=== PATIENT | female | born 1970 | race Caucasian/White ===

== ENCOUNTER 2017-09-03 11:10 | Emergency (ER) | payer OTHER ==
[~2017-09-03] VITALS: Ht 162.6 cm; Wt 90.7 kg
[~2017-09-03 11:10] MED LIST: ACEASPCAF; ACET325; ADAL40PEN; AEROECLIPSE II1 EACH PO; AMOX500 PO; ASPI81CH PO; ATOR80 PO; Amoxicillin500 MG PO; Ativan1 MG PO; BENADRYL25 MG PO; BENZ100A PO; CLOP75 PO; COLCHICINE0.6 MG PO; CRUTCH2 USE; CYCL10 PO; Cheratussin AC118 ML PO; Cipro500 MG PO; Crutch1 EACH MISC; DILT120 PO; Duoneb 2.5-0.5 M3 ML INH; ESOM20; ESTR2 PO; FERR325 PO; FLUO10 PO; FOLI1 PO; Flagyl500 MG PO; Flomax0.4 MG PO; GABA300 PO; HUMERA; HUMIRA10 MG/0.2; HYDACE10B PO; HYDACE25S PR; HYDACE5 PO; HYDCHLSU PO; HYDMOR4 PO; HYDR1TAB94 PO; IBUP600 PO; IBUP800; IBUP800 PO; IRON150C PO; ISOD40ER PO; ISOMON20; Isosorbide Mono30 MG PO; LEVSOD100 PO; LEVSOD50 PO; LORA2 PO; Lopressor 25 mg25 MG PO; MEPE50 PO; META400 PO; METCAR500 PO; METCAR750 PO; METF500 PO; METO10 PO; METO25ER PO; METRIBP PO; NAPR500 PO; NAPR550 PO; NITR.4SL; NITR.4SL SL; Nitrostat0.4 MG SL; Norco 10-325 T1 EACH PO; Norco 5-325 Ta1 EACH PO; OMEP20ER PO; ONDA4ODT; OXYACE5T PO; OXYACE7.5T PO; OXYC5 PO; PANT20 PO; PANT40 PO; PRED5 PO; PROACE100 PO; PROC10 PO; PROM25 PO; Pepcid20 MG PO; Percocet 5-3251 EACH PO; Percocet 7.5-31 EACH PO; Peridex480 ML SS; RANI150EL; RXPROACE PO; RXTRAM50 PO; Remicade100 MG IV; SUCR1 PO; SULF500A PO; TRAM50 PO; TREXALL PO; Zithromax250 MG PO
== END 2017-09-03 16:53 | disposition home or self-care (01) ==
LOC: ER 11:10
DX: G43.909 Migraine, unspecified, not intractable, without status migrainosus (principal); J06.9 Acute upper respiratory infection, unspecified; I10 Essential (primary) hypertension; F17.210 Nicotine dependence, cigarettes, uncomplicated; I25.2 Old myocardial infarction; E11.40 Type 2 diabetes mellitus with diabetic neuropathy, unspecified; Z88.5 Allergy status to narcotic agent; Z88.8 Allergy status to other drugs, medicaments and biological substances; Z79.899 Other long term (current) drug therapy; Z79.84 Long term (current) use of oral hypoglycemic drugs; Z79.82 Long term (current) use of aspirin
CPT/HCPCS: 36415; 71046; 96374; 96375; 99283; J0780; J1100; J1200; J1885; J2405; J7030

== ENCOUNTER 2017-10-24 12:35 | Emergency (ER) | payer OTHER ==
[~2017-10-24] VITALS: Ht 162.6 cm; Wt 90.7 kg
[~2017-10-24 12:35] MED LIST changes: +BUPR75 PO; +CODEINE-GUAIFE120 ML PO; +GUAI600T33 PO; +LEFL20 PO; -ONDA4ODT; +ONDA4ODT PO; +PRED20 PO; -RANI150EL; +RANI150EL PO; +Robaxin-750750 MG PO
[2017-10-24 13:02] LABS: BASOPHILS ABSOLUTE AUTO 0.03 K/mm3 (0.00-0.23); BASOPHILS PERCENT AUTO 0 % (0-2); EOSINOPHILS ABSOLUTE AUTO 0.15 K/mm3 (0.00-0.68); EOSINOPHILS PERCENT AUTO 2 % (0-6); Hematocrit 41.8 % (33.0-51.0); Hemoglobin 13.1 g/dL (11.5-16.0); IMMATURE GRAN ABSOLUTE AUTO 0.01 K/mm3 (0.00-0.10); IMMATURE GRAN PERCENT AUTO 0 % (0-1); LYMPHOCYTES ABSOLUTE AUTO 2.39 K/mm3 (0.84-5.20); LYMPHOCYTES PERCENT AUTO 36 % (21-46); MONOCYTES ABSOLUTE AUTO 0.71 K/mm3 (0.16-1.47); MONOCYTES PERCENT AUTO 11 % (4-13); Mean Corpuscular HGB 29.8 pg (26.0-34.0); Mean Corpuscular HGB Conc 31.3 g/dL (31.5-36.5); Mean Corpuscular Volume 95 fL (80-100); Mean Platelet Volume 12.3 fL (9.1-12.4); NEUTROPHILS ABSOLUTE AUTO 3.42 K/mm3 (1.96-9.15); NEUTROPHILS PERCENT AUTO 51 % (41-73); Platelet Count 129 K/mm3 (150-400); RDW Coefficient Variation 14.8 % (11.7-14.2); RDW Standard Deviation 51.7 fL (35.1-46.3); White Blood Cell Count 6.71 K/mm3 (4.00-11.30)
[2017-10-24 13:21] LABS: Alanine Aminotransfer (ALT/SGP 53 U/L (12-78); Albumin, Blood 3.6 g/dL (3.4-5.0); Albumin/Globulin Ratio 0.8 (0.8-1.8); Alk Phos 107 U/L (50-136); Anion Gap 6 mmol/L (6-16); Aspartate Aminotrans (AST/SGOT 46 U/L (12-37); Bilirubin, Total 0.5 mg/dL (0.1-1.0); Blood Urea Nitrogen 7 mg/dL (8-24); Bun/Creatinine Ratio 8.8 (12.0-20.0); CO2, Blood 26 mmol/L (21-32); Calcium, Blood 8.9 mg/dL (8.5-10.1); Chloride, Blood 108 mmol/L (98-108); Creatinine, Blood 0.79 mg/dL (0.40-1.00); Globulin, Blood 4.4 g/dL (2.2-4.0); Glomerular Filtration Rate >60 (60-); Glucose, Blood 162 mg/dL (70-99); Potassium, Blood 3.9 mmol/L (3.5-5.5); Sodium, Blood 140 mmol/L (136-145); Troponin I <0.015 ng/mL (0.000-0.040)
[2017-10-24] MEDS ORDERED: Norco 5-325 Ta1 EACH PO (14:19)
[2017-10-24] MEDS ORDERED: Cardizem Cd180 MG PO (14:19)
== END 2017-10-24 14:50 | disposition home or self-care (01) ==
LOC: ER 12:35
PROVIDERS: Emergency Medicine
DX: I20.9 Angina pectoris, unspecified (principal); I10 Essential (primary) hypertension; I25.2 Old myocardial infarction; F17.210 Nicotine dependence, cigarettes, uncomplicated; Z95.5 Presence of coronary angioplasty implant and graft; E11.40 Type 2 diabetes mellitus with diabetic neuropathy, unspecified; Z79.84 Long term (current) use of oral hypoglycemic drugs; Z79.82 Long term (current) use of aspirin; Z79.899 Other long term (current) drug therapy; Z88.8 Allergy status to other drugs, medicaments and biological substances; Z88.5 Allergy status to narcotic agent; Z88.7 Allergy status to serum and vaccine
CPT/HCPCS: 36415; 80053; 82272; 83690; 84484; 85025; 93005; 93010; 96374; 99284; J3010

== ENCOUNTER 2020-06-28 20:15 | Emergency (ER) | payer OTHER ==
[~2020-06-28] VITALS: Ht 160 cm; Wt 85.7 kg
[~2020-06-28 20:15] MED LIST changes: +Cardizem Cd180 MG PO
[2020-06-28 20:41] LABS: BASOPHILS ABSOLUTE AUTO 0.03 K/mm3 (0.00-0.23); BASOPHILS PERCENT AUTO 0 % (0-2); EOSINOPHILS PERCENT AUTO 2 % (0-6); Hematocrit 41.6 % (33.0-51.0); Hemoglobin 13.6 g/dL (11.5-16.0); IMMATURE GRAN ABSOLUTE AUTO 0.03 K/mm3 (0.00-0.10); IMMATURE GRAN PERCENT AUTO 0 % (0-1); LYMPHOCYTES ABSOLUTE AUTO 4.01 K/mm3 (0.84-5.20); LYMPHOCYTES PERCENT AUTO 43 % (21-46); MONOCYTES ABSOLUTE AUTO 0.65 K/mm3 (0.16-1.47); MONOCYTES PERCENT AUTO 7 % (4-13); Mean Corpuscular HGB 31.1 pg (26.0-34.0); Mean Corpuscular HGB Conc 32.7 g/dL (31.5-36.5); Mean Corpuscular Volume 95 fL (80-100); Mean Platelet Volume 11.1 fL (9.1-12.4); NEUTROPHILS ABSOLUTE AUTO 4.34 K/mm3 (1.96-9.15); NEUTROPHILS PERCENT AUTO 47 % (41-73); Platelet Count 173 K/mm3 (150-400); RDW Coefficient Variation 15.7 % (11.7-14.2); RDW Standard Deviation 55.2 fL (35.1-46.3); Red Blood Cell Count 4.37 M/mm3 (3.80-5.20); White Blood Cell Count 9.26 K/mm3 (4.00-11.30)
[2020-06-28 20:59] LABS: Alanine Aminotransfer (ALT/SGP 38 U/L (12-78); Albumin, Blood 4.1 g/dL (3.4-5.0); Alk Phos 128 U/L (50-136); Anion Gap 4 mmol/L (6-16); Aspartate Aminotrans (AST/SGOT 22 U/L (12-37); Bilirubin, Total 0.3 mg/dL (0.1-1.0); Blood Urea Nitrogen 12 mg/dL (8-24); Bun/Creatinine Ratio 16.4 (12.0-20.0); CO2, Blood 30 mmol/L (21-32); Calcium, Blood 9.7 mg/dL (8.5-10.1); Chloride, Blood 107 mmol/L (98-108); Creatinine, Blood 0.73 mg/dL (0.40-1.00); Globulin, Blood 4.1 g/dL (2.2-4.0); Glomerular Filtration Rate >60 (60-); Glucose, Blood 101 mg/dL (70-99); Potassium, Blood 4.1 mmol/L (3.5-5.5); Sodium, Blood 141 mmol/L (136-145); Total Protein, Blood 8.2 g/dL (6.4-8.2)
[2020-06-28 21:34] LABS: Source, Urine Clean Catch
[2020-06-28 21:37] LABS: Blood, Urine 1+ (Neg); Glucose Qualitative, Urine Neg (Neg); Ketones, Urine 1+ (Neg); Leukocyte Esterase, Urine 1+ (Neg); Nitrite, Urine Neg (Neg); Protein, Urine 2+ (Neg); Specific Gravity, Urine 1.015 (1.003-1.022); Urobilinogen, Urine NORM (Normal); pH, Urine 6.5 (5.0-8.0)
[2020-06-28 21:40] LABS: Appearance, Urine Clear (Clear); Color, Urine Yellow (P-Yellow)
[2020-06-28 21:46] LABS: Bilirubin, Urine 1+ (Neg)
[2020-06-28 21:47] LABS: Bacteria Few /hpf; Calcium Oxalate Crystals Many /hpf; Red Blood Cells, Urine 0-2 /hpf (0-2); Squamous Epithelial Cells Few /hpf (Few); White Blood Cells, Urine 0-2 /hpf (0-5)
[2020-06-28] MEDS ORDERED: Flomax0.4 MG PO (23:59)
[2020-06-29] MEDS ORDERED: Percocet 10-321 EACH PO (23:46)
[2020-06-30] MEDS ORDERED: ONDA4ODT MM (10:39)
== END 2020-06-29 00:11 | disposition home or self-care (01) ==
LOC: ER 20:15
PROVIDERS: Physician Assistant
DX: N20.0 Calculus of kidney (principal); I10 Essential (primary) hypertension; E11.40 Type 2 diabetes mellitus with diabetic neuropathy, unspecified; I25.2 Old myocardial infarction; Z79.82 Long term (current) use of aspirin; Z79.899 Other long term (current) drug therapy; Z79.02 Long term (current) use of antithrombotics/antiplatelets; Z88.5 Allergy status to narcotic agent; Z88.8 Allergy status to other drugs, medicaments and biological substances; Z88.7 Allergy status to serum and vaccine; Z95.5 Presence of coronary angioplasty implant and graft
CPT/HCPCS: 36415; 74176; 80053; 81001; 85025; 87086; 96374; 96375; 99284-25; A9270; J1170; J1885; J2405

== ENCOUNTER 2020-06-29 18:57 | Emergency (ER) | payer OTHER ==
[~2020-06-29] VITALS: Ht 160 cm; Wt 85.7 kg
[2020-06-29 19:35] LABS: Source, Urine Clean Catch
[2020-06-29 19:36] LABS: BASOPHILS ABSOLUTE AUTO 0.03 K/mm3 (0.00-0.23); BASOPHILS PERCENT AUTO 0 % (0-2); EOSINOPHILS ABSOLUTE AUTO 0.19 K/mm3 (0.00-0.68); EOSINOPHILS PERCENT AUTO 2 % (0-6); Hematocrit 38.7 % (33.0-51.0); Hemoglobin 12.6 g/dL (11.5-16.0); IMMATURE GRAN ABSOLUTE AUTO 0.04 K/mm3 (0.00-0.10); IMMATURE GRAN PERCENT AUTO 1 % (0-1); LYMPHOCYTES PERCENT AUTO 44 % (21-46); MONOCYTES ABSOLUTE AUTO 0.47 K/mm3 (0.16-1.47); MONOCYTES PERCENT AUTO 5 % (4-13); Mean Corpuscular HGB 31.3 pg (26.0-34.0); Mean Corpuscular HGB Conc 32.6 g/dL (31.5-36.5); Mean Corpuscular Volume 96 fL (80-100); Mean Platelet Volume 11.3 fL (9.1-12.4); NEUTROPHILS PERCENT AUTO 48 % (41-73); Platelet Count 158 K/mm3 (150-400); RDW Coefficient Variation 15.7 % (11.7-14.2); RDW Standard Deviation 55.5 fL (35.1-46.3); Red Blood Cell Count 4.02 M/mm3 (3.80-5.20); White Blood Cell Count 8.83 K/mm3 (4.00-11.30)
[2020-06-29 19:43] LABS: Appearance, Urine Clear (Clear); Bilirubin, Urine Neg (Neg); Blood, Urine 1+ (Neg); Color, Urine Amber (P-Yellow); Glucose Qualitative, Urine Neg (Neg); Ketones, Urine Neg (Neg); Leukocyte Esterase, Urine 1+ (Neg); Nitrite, Urine Neg (Neg); Protein, Urine Neg (Neg); Urobilinogen, Urine NORM (Normal); pH, Urine 6.5 (5.0-8.0)
[2020-06-29 19:58] LABS: Bacteria Few /hpf; Calcium Oxalate Crystals Few /hpf; Squamous Epithelial Cells Rare /hpf (Few)
[2020-06-29 19:59] LABS: Alanine Aminotransfer (ALT/SGP 36 U/L (12-78); Albumin, Blood 3.7 g/dL (3.4-5.0); Alk Phos 117 U/L (50-136); Anion Gap 5 mmol/L (6-16); Aspartate Aminotrans (AST/SGOT 23 U/L (12-37); Bilirubin, Total 0.3 mg/dL (0.1-1.0); Blood Urea Nitrogen 13 mg/dL (8-24); Bun/Creatinine Ratio 17.4 (12.0-20.0); CO2, Blood 25 mmol/L (21-32); Calcium, Blood 9.2 mg/dL (8.5-10.1); Chloride, Blood 109 mmol/L (98-108); Creatinine, Blood 0.75 mg/dL (0.40-1.00); Globulin, Blood 3.8 g/dL (2.2-4.0); Glomerular Filtration Rate >60 (60-); Glucose, Blood 121 mg/dL (70-99); Potassium, Blood 3.6 mmol/L (3.5-5.5); Sodium, Blood 139 mmol/L (136-145); Total Protein, Blood 7.5 g/dL (6.4-8.2)
[2020-06-29] MEDS ORDERED: Percocet 10-321 EACH PO (23:46)
[2020-06-30] MEDS ORDERED: ONDA4ODT MM (10:39)
== END 2020-06-30 00:07 | disposition home or self-care (01) ==
LOC: ER 18:57
PROVIDERS: Physician Assistant
DX: N20.0 Calculus of kidney (principal); I10 Essential (primary) hypertension; E11.40 Type 2 diabetes mellitus with diabetic neuropathy, unspecified; F17.210 Nicotine dependence, cigarettes, uncomplicated; I25.2 Old myocardial infarction; Z79.82 Long term (current) use of aspirin; Z79.899 Other long term (current) drug therapy; Z79.84 Long term (current) use of oral hypoglycemic drugs; Z88.5 Allergy status to narcotic agent; Z88.8 Allergy status to other drugs, medicaments and biological substances; Z88.7 Allergy status to serum and vaccine; Z79.02 Long term (current) use of antithrombotics/antiplatelets
CPT/HCPCS: 36415; 76770; 80053; 81001; 85025; 87086; 96374; 96375; 96376; 99284-25; J1170; J1885; J2405

== ENCOUNTER 2020-09-02 18:58 | Emergency (ER) | payer OTHER ==
[~2020-09-02] VITALS: Ht 160 cm; Wt 86.2 kg
[~2020-09-02 18:58] MED LIST changes: +ONDA4ODT MM; +Percocet 10-321 EACH PO
== END 2020-09-02 23:03 | disposition home or self-care (01) ==
LOC: ER 18:58
DX: M79.89 Other specified soft tissue disorders (principal); M79.604 Pain in right leg; Z88.8 Allergy status to other drugs, medicaments and biological substances; Z88.5 Allergy status to narcotic agent; Z79.02 Long term (current) use of antithrombotics/antiplatelets; Z79.899 Other long term (current) drug therapy
CPT/HCPCS: 93971; 99283-25

== ENCOUNTER 2021-07-10 14:29 | Emergency (ER) | payer MEDICARE, OTHER ==
[~2021-07-10] VITALS: Ht 160 cm; Wt 86.2 kg
[2021-07-10 15:06] LABS: Hematocrit 40.7 % (33.0-51.0); Hemoglobin 13.2 g/dL (11.5-16.0); Mean Corpuscular HGB 32.2 pg (26.0-34.0); Mean Corpuscular HGB Conc 32.4 g/dL (31.5-36.5); Mean Corpuscular Volume 99 fL (80-100); Mean Platelet Volume 10.5 fL (9.1-12.4); Platelet Count 214 K/mm3 (150-400); RDW Coefficient Variation 13.9 % (11.7-14.2); RDW Standard Deviation 50.9 fL (35.1-46.3); White Blood Cell Count 17.02 K/mm3 (4.00-11.30)
[2021-07-10 15:26] LABS: Alanine Aminotransfer (ALT/SGP 55 U/L (12-78); Albumin, Blood 3.3 g/dL (3.4-5.0); Albumin/Globulin Ratio 0.8 (0.8-1.8); Alk Phos 122 U/L (50-136); Anion Gap 5 mmol/L (6-16); Aspartate Aminotrans (AST/SGOT 41 U/L (12-37); Bilirubin, Total 0.3 mg/dL (0.1-1.0); Blood Urea Nitrogen 10 mg/dL (8-24); Bun/Creatinine Ratio 14.6 (12.0-20.0); CO2, Blood 25 mmol/L (21-32); Calcium, Blood 9.3 mg/dL (8.5-10.1); Chloride, Blood 109 mmol/L (98-108); Creatinine, Blood 0.68 mg/dL (0.40-1.00); Globulin, Blood 4.1 g/dL (2.2-4.0); Glomerular Filtration Rate >60 (60-); Glucose, Blood 146 mg/dL (70-99); Potassium, Blood 3.5 mmol/L (3.5-5.5); Sodium, Blood 139 mmol/L (136-145); Total Protein, Blood 7.4 g/dL (6.4-8.2)
[2021-07-10 15:36] LABS: BAND PERCENT MAN 2 % (0-8); BASOPHILS PERCENT MAN 0 % (0-2); EOSINOPHILS PERCENT MAN 0 % (0-6); LYMPHOCYTES % ATYPICAL MANUAL 3 % (0-0); LYMPHOCYTES ABSOLUTE MAN 4.59 K/mm3 (0.84-5.20); LYMPHOCYTES PERCENT MAN 24 % (21-46); MONOCYTES ABSOLUTE MAN 0.68 K/mm3 (0.16-1.47); MONOCYTES PERCENT MAN 4 % (4-13); NEUTROPHILS ABSOLUTE MAN 11.74 K/mm3 (1.96-9.15); SEG NEUTROPHILS PERCENT MAN 67 % (41-73); TOTAL CELLS COUNTED 100
[2021-07-10] MEDS ORDERED: Prednisone20 MG PO (17:40)
[2021-07-10] MEDS ORDERED: ALLO100 PO (17:40)
== END 2021-07-10 18:05 | disposition home or self-care (01) ==
LOC: ER 14:29
PROVIDERS: Physician Assistant
DX: M25.572 Pain in left ankle and joints of left foot (principal); I10 Essential (primary) hypertension; I25.2 Old myocardial infarction; E11.40 Type 2 diabetes mellitus with diabetic neuropathy, unspecified; F17.210 Nicotine dependence, cigarettes, uncomplicated; Z79.899 Other long term (current) drug therapy; Z79.82 Long term (current) use of aspirin; Z79.84 Long term (current) use of oral hypoglycemic drugs; Z88.5 Allergy status to narcotic agent; Z88.8 Allergy status to other drugs, medicaments and biological substances
CPT/HCPCS: 36415; 80053; 83880; 85025; 93971; 96372; 99284-25; J1170

== ENCOUNTER 2021-08-22 19:07 | Emergency (ER) | payer MEDICARE, OTHER ==
[~2021-08-22] VITALS: Ht 160 cm; Wt 86.2 kg
[~2021-08-22 19:07] MED LIST changes: +ALLO100 PO; +Prednisone20 MG PO
[2021-08-22 20:20] LABS: BASOPHILS ABSOLUTE AUTO 0.02 K/mm3 (0.00-0.23); BASOPHILS PERCENT AUTO 0 % (0-2); EOSINOPHILS ABSOLUTE AUTO 0.04 K/mm3 (0.00-0.68); EOSINOPHILS PERCENT AUTO 1 % (0-6); Hematocrit 41.6 % (33.0-51.0); Hemoglobin 13.6 g/dL (11.5-16.0); IMMATURE GRAN ABSOLUTE AUTO 0.08 K/mm3 (0.00-0.10); IMMATURE GRAN PERCENT AUTO 1 % (0-1); LYMPHOCYTES ABSOLUTE AUTO 2.13 K/mm3 (0.84-5.20); LYMPHOCYTES PERCENT AUTO 36 % (21-46); MONOCYTES ABSOLUTE AUTO 0.68 K/mm3 (0.16-1.47); MONOCYTES PERCENT AUTO 12 % (4-13); Mean Corpuscular HGB 32.2 pg (26.0-34.0); Mean Corpuscular HGB Conc 32.7 g/dL (31.5-36.5); Mean Corpuscular Volume 99 fL (80-100); Mean Platelet Volume 10.6 fL (9.1-12.4); NEUTROPHILS ABSOLUTE AUTO 2.95 K/mm3 (1.96-9.15); NEUTROPHILS PERCENT AUTO 50 % (41-73); Platelet Count 146 K/mm3 (150-400); RDW Coefficient Variation 14.9 % (11.7-14.2); RDW Standard Deviation 54.3 fL (35.1-46.3); Red Blood Cell Count 4.22 M/mm3 (3.80-5.20)
[2021-08-22 20:41] LABS: Alanine Aminotransfer (ALT/SGP 120 U/L (12-78); Albumin, Blood 3.5 g/dL (3.4-5.0); Albumin/Globulin Ratio 0.9 (0.8-1.8); Alk Phos 121 U/L (50-136); Anion Gap 4 mmol/L (6-16); Aspartate Aminotrans (AST/SGOT 90 U/L (12-37); Bilirubin, Total 0.3 mg/dL (0.1-1.0); Blood Urea Nitrogen 10 mg/dL (8-24); Bun/Creatinine Ratio 13.8 (12.0-20.0); CO2, Blood 28 mmol/L (21-32); Calcium, Blood 9.4 mg/dL (8.5-10.1); Chloride, Blood 106 mmol/L (98-108); Creatinine, Blood 0.73 mg/dL (0.40-1.00); Globulin, Blood 3.9 g/dL (2.2-4.0); Glomerular Filtration Rate >60 (60-); Glucose, Blood 153 mg/dL (70-99); Sodium, Blood 138 mmol/L (136-145); Total Protein, Blood 7.4 g/dL (6.4-8.2)
== END 2021-08-22 21:11 | disposition home or self-care (01) ==
LOC: ER 19:07
PROVIDERS: Physician Assistant
DX: Z53.21 Procedure and treatment not carried out due to patient leaving prior to being seen by health care provider (principal)
CPT/HCPCS: 36415; 71045; 80053; 84484; 85025; 93005; 93010; 99283-25

== ENCOUNTER 2021-09-29 14:30 | Emergency (ER) | payer MEDICARE, OTHER ==
[~2021-09-29] VITALS: Ht 160 cm; Wt 86.2 kg
[2021-09-29 16:05] LABS: BASOPHILS ABSOLUTE AUTO 0.03 K/mm3 (0.00-0.23); BASOPHILS PERCENT AUTO 0 % (0-2); EOSINOPHILS ABSOLUTE AUTO 0.21 K/mm3 (0.00-0.68); EOSINOPHILS PERCENT AUTO 2 % (0-6); Hematocrit 38.1 % (33.0-51.0); Hemoglobin 12.8 g/dL (11.5-16.0); IMMATURE GRAN ABSOLUTE AUTO 0.03 K/mm3 (0.00-0.10); IMMATURE GRAN PERCENT AUTO 0 % (0-1); LYMPHOCYTES PERCENT AUTO 27 % (21-46); MONOCYTES ABSOLUTE AUTO 0.82 K/mm3 (0.16-1.47); MONOCYTES PERCENT AUTO 8 % (4-13); Mean Corpuscular HGB 32.2 pg (26.0-34.0); Mean Corpuscular HGB Conc 33.6 g/dL (31.5-36.5); Mean Corpuscular Volume 96 fL (80-100); Mean Platelet Volume 10.7 fL (9.1-12.4); NEUTROPHILS ABSOLUTE AUTO 6.12 K/mm3 (1.96-9.15); NEUTROPHILS PERCENT AUTO 62 % (41-73); Platelet Count 161 K/mm3 (150-400); RDW Coefficient Variation 13.6 % (11.7-14.2); RDW Standard Deviation 48.4 fL (35.1-46.3); Red Blood Cell Count 3.98 M/mm3 (3.80-5.20); White Blood Cell Count 9.81 K/mm3 (4.00-11.30)
[2021-09-29 16:19] LABS: C-REACTIVE PROTEIN, EXT RANGE 7.27 mg/dL (0.000-0.300)
[2021-09-29 16:22] LABS: Albumin, Blood 2.9 g/dL (3.4-5.0); Albumin/Globulin Ratio 0.6 (0.8-1.8); Bilirubin, Total 0.5 mg/dL (0.1-1.0); Bun/Creatinine Ratio 12.6 (12.0-20.0); Calcium, Blood 8.8 mg/dL (8.5-10.1); Creatinine, Blood 0.64 mg/dL (0.40-1.00); Globulin, Blood 4.5 g/dL (2.2-4.0); Potassium, Blood 3.5 mmol/L (3.5-5.5); Total Protein, Blood 7.4 g/dL (6.4-8.2)
[2021-09-29] MEDS ORDERED: LEVO750 PO (21:27)
== END 2021-09-29 21:49 | disposition home or self-care (01) ==
LOC: ER 14:30
PROVIDERS: Physician Assistant
DX: J18.9 Pneumonia, unspecified organism (principal); I10 Essential (primary) hypertension; R21 Rash and other nonspecific skin eruption; I25.2 Old myocardial infarction; E11.40 Type 2 diabetes mellitus with diabetic neuropathy, unspecified; F17.210 Nicotine dependence, cigarettes, uncomplicated; Z79.02 Long term (current) use of antithrombotics/antiplatelets; Z79.899 Other long term (current) drug therapy; Z79.82 Long term (current) use of aspirin; Z79.84 Long term (current) use of oral hypoglycemic drugs; Z88.4 Allergy status to anesthetic agent; Z88.5 Allergy status to narcotic agent; Z88.7 Allergy status to serum and vaccine; Z88.8 Allergy status to other drugs, medicaments and biological substances; Z95.818 Presence of other cardiac implants and grafts
CPT/HCPCS: 71046; 80053; 84484; 85025; 86140; 93005; 93010; A9270

== ENCOUNTER 2021-10-27 09:15 | Emergency (ER) | payer OTHER ==
[~2021-10-27] VITALS: Ht 160 cm; Wt 84.4 kg
[~2021-10-27 09:15] MED LIST changes: +LEVO750 PO
[2021-10-27 10:53] LABS: Albumin/Globulin Ratio 0.8 (0.8-1.8); Bilirubin, Total 0.5 mg/dL (0.1-1.0); Bun/Creatinine Ratio 17.8 (12.0-20.0); Calcium, Blood 8.7 mg/dL (8.5-10.1); Creatinine, Blood 0.62 mg/dL (0.40-1.00); Potassium, Blood 3.6 mmol/L (3.5-5.5)
[2021-10-27 11:15] LABS: BASOPHILS ABSOLUTE AUTO 0.04 K/mm3 (0.00-0.23); BASOPHILS PERCENT AUTO 0 % (0-2); EOSINOPHILS ABSOLUTE AUTO 0.05 K/mm3 (0.00-0.68); EOSINOPHILS PERCENT AUTO 0 % (0-6); Hematocrit 37.7 % (33.0-51.0); Hemoglobin 12.3 g/dL (11.5-16.0); IMMATURE GRAN ABSOLUTE AUTO 0.08 K/mm3 (0.00-0.10); IMMATURE GRAN PERCENT AUTO 1 % (0-1); LYMPHOCYTES ABSOLUTE AUTO 1.88 K/mm3 (0.84-5.20); LYMPHOCYTES PERCENT AUTO 11 % (21-46); MONOCYTES ABSOLUTE AUTO 0.97 K/mm3 (0.16-1.47); MONOCYTES PERCENT AUTO 6 % (4-13); Mean Corpuscular HGB 31.9 pg (26.0-34.0); Mean Corpuscular HGB Conc 32.6 g/dL (31.5-36.5); Mean Corpuscular Volume 98 fL (80-100); Mean Platelet Volume 11.2 fL (9.1-12.4); NEUTROPHILS ABSOLUTE AUTO 13.72 K/mm3 (1.96-9.15); NEUTROPHILS PERCENT AUTO 82 % (41-73); Platelet Count 147 K/mm3 (150-400); RDW Coefficient Variation 13.6 % (11.7-14.2); RDW Standard Deviation 48.6 fL (35.1-46.3); Red Blood Cell Count 3.86 M/mm3 (3.80-5.20); White Blood Cell Count 16.74 K/mm3 (4.00-11.30)
[2021-10-27 13:27] LABS: Influenza A, PCR NEGATIVE (NEGATIVE); Influenza B, PCR NEGATIVE (NEGATIVE); Resp Syncytial Virus, PCR NEGATIVE (NEGATIVE); SARS-Cov-2 (COVID-19) PCR, MMC NEGATIVE (NEGATIVE)
[2021-10-27] MEDS ORDERED: ALBU2.5V5 NEB (14:35)
[2021-10-27] MEDS ORDERED: ALBU90OI INH (14:35)
== END 2021-10-27 14:52 | disposition home or self-care (01) ==
LOC: ER 09:15
PROVIDERS: Emergency Medicine
DX: J20.9 Acute bronchitis, unspecified (principal); I10 Essential (primary) hypertension; I25.2 Old myocardial infarction; E11.42 Type 2 diabetes mellitus with diabetic polyneuropathy; M06.9 Rheumatoid arthritis, unspecified; Z95.5 Presence of coronary angioplasty implant and graft; Z20.822 Contact with and (suspected) exposure to COVID-19; Z79.899 Other long term (current) drug therapy; Z79.52 Long term (current) use of systemic steroids; Z79.84 Long term (current) use of oral hypoglycemic drugs; Z79.02 Long term (current) use of antithrombotics/antiplatelets
CPT/HCPCS: 0241U; 36415; 71046; 80053; 84484; 85025; 93005; 93010; 94640; 94664; 99284-25; A9270; J1170; J2405

== ENCOUNTER 2024-04-11 14:17 | Emergency (ER) | payer OTHER ==
[~2024-04-11] VITALS: Ht 165.1 cm; Wt 79.4 kg
[~2024-04-11 14:17] MED LIST changes: +ALBU2.5V5 NEB; +ALBU90OI INH
[2024-04-11 15:08] LABS: BASOPHILS ABSOLUTE AUTO 0.02 K/mm3 (0.00-0.23); BASOPHILS PERCENT AUTO 0 % (0-2); EOSINOPHILS ABSOLUTE AUTO 0.24 K/mm3 (0.00-0.68); EOSINOPHILS PERCENT AUTO 3 % (0-6); Hematocrit 38.2 % (33.0-51.0); Hemoglobin 12.8 g/dL (11.5-16.0); IMMATURE GRAN ABSOLUTE AUTO 0.03 K/mm3 (0.00-0.10); IMMATURE GRAN PERCENT AUTO 0 % (0-1); LYMPHOCYTES ABSOLUTE AUTO 2.81 K/mm3 (0.84-5.20); LYMPHOCYTES PERCENT AUTO 36 % (21-46); MONOCYTES ABSOLUTE AUTO 0.39 K/mm3 (0.16-1.47); MONOCYTES PERCENT AUTO 5 % (4-13); Mean Corpuscular HGB 33.9 pg (26.0-34.0); Mean Corpuscular HGB Conc 33.5 g/dL (31.5-36.5); Mean Corpuscular Volume 101 fL (80-100); Mean Platelet Volume 11.2 fL (9.1-12.4); NEUTROPHILS ABSOLUTE AUTO 4.26 K/mm3 (1.96-9.15); NEUTROPHILS PERCENT AUTO 55 % (41-73); Platelet Count 138 K/mm3 (150-400); RDW Coefficient Variation 12.7 % (11.7-14.2); Red Blood Cell Count 3.78 M/mm3 (3.80-5.20); White Blood Cell Count 7.75 K/mm3 (4.00-11.30)
[2024-04-11 15:28] LABS: Albumin, Blood 3.3 g/dL (3.4-5.0); Albumin/Globulin Ratio 0.9 (0.8-1.8); Bilirubin, Total 0.4 mg/dL (0.1-1.0); Bun/Creatinine Ratio 14.1 (12.0-20.0); Calcium, Blood 8.6 mg/dL (8.5-10.1); Creatinine, Blood 0.78 mg/dL (0.40-1.00); Globulin, Blood 3.6 g/dL (2.2-4.0); Total Protein, Blood 6.9 g/dL (6.4-8.2)
[2024-04-11] MEDS ORDERED: Ketorolac Tromethamine 15mg Vial IV ONE (16:30)
[2024-04-11] MEDS ORDERED: Nitroglycerin 0.4 MG SUBL SL ONE ×2 (16:30→17:30)
[2024-04-11 17:40] LABS: Influenza A, PCR NEGATIVE (NEGATIVE); Influenza B, PCR NEGATIVE (NEGATIVE); Resp Syncytial Virus, PCR NEGATIVE (NEGATIVE); SARS-Cov-2 (COVID-19) PCR, MMC NEGATIVE (NEGATIVE)
[2024-04-11 18:29] VITALS: BP 165/99
[2024-04-11] MEDS ORDERED: OxyCODONE 10/Acetamin 325 TABLET PO ONE (18:40)
[2024-04-11] MEDS ORDERED: Azithromycin 250 MG Tab PO ONE (18:40)
[2024-04-11] MEDS ORDERED: Benzonatate 100 MG Cap PO ONE (18:45)
[2024-04-11] MEDS ORDERED: AZIT250 PO (19:20)
[2024-04-11] MEDS ORDERED: BENZ100A PO (19:21)
[2024-04-11] MEDS ORDERED: ACET500 PO (19:21)
== END 2024-04-11 19:30 | disposition home or self-care (01) ==
LOC: ER 14:17
PROVIDERS: Emergency Medicine; Student in an Organized Health Care Education/Training Program
DX: R07.89 Other chest pain (principal); R05.9 Cough, unspecified; R91.1 Solitary pulmonary nodule; I25.2 Old myocardial infarction; I10 Essential (primary) hypertension; E11.42 Type 2 diabetes mellitus with diabetic polyneuropathy; M06.9 Rheumatoid arthritis, unspecified; M32.9 Systemic lupus erythematosus, unspecified; L40.50 Arthropathic psoriasis, unspecified; K50.90 Crohn's disease, unspecified, without complications; F17.210 Nicotine dependence, cigarettes, uncomplicated; Z95.5 Presence of coronary angioplasty implant and graft; Z88.5 Allergy status to narcotic agent; Z88.8 Allergy status to other drugs, medicaments and biological substances; Z88.7 Allergy status to serum and vaccine; Z79.84 Long term (current) use of oral hypoglycemic drugs; Z79.02 Long term (current) use of antithrombotics/antiplatelets; Z79.82 Long term (current) use of aspirin; Z79.52 Long term (current) use of systemic steroids; Z79.899 Other long term (current) drug therapy
CPT/HCPCS: 0241U; 71046; 71260; 80053; 83690; 83880; 84484; 85025; 85379; 93005; 93010; 96374-59; 99285-25; A9270; J1885; Q9967

== ENCOUNTER 2024-09-04 22:50 | Emergency (ER) | payer MEDICARE ==
[~2024-09-04] VITALS: Ht 170.2 cm; Wt 79.4 kg
[~2024-09-04 22:50] MED LIST changes: +ACET500 PO; +AZIT250 PO
[2024-09-04 23:04] VITALS: BP 120/92
== END 2024-09-05 00:20 | disposition home or self-care (01) ==
LOC: ER 22:50
DX: S70.11XA Contusion of right thigh, initial encounter (principal); M25.572 Pain in left ankle and joints of left foot; X50.0XXA Overexertion from strenuous movement or load, initial encounter; F17.210 Nicotine dependence, cigarettes, uncomplicated; I10 Essential (primary) hypertension; E11.40 Type 2 diabetes mellitus with diabetic neuropathy, unspecified; Z87.442 Personal history of urinary calculi; Z88.1 Allergy status to other antibiotic agents; Z88.2 Allergy status to sulfonamides; Z88.9 Allergy status to unspecified drugs, medicaments and biological substances; Z88.0 Allergy status to penicillin; Z91.09 Other allergy status, other than to drugs and biological substances; Z79.899 Other long term (current) drug therapy; Z79.891 Long term (current) use of opiate analgesic; Z79.890 Hormone replacement therapy; Z79.51 Long term (current) use of inhaled steroids; Z79.52 Long term (current) use of systemic steroids; Z79.83 Long term (current) use of bisphosphonates; Z79.82 Long term (current) use of aspirin; Z79.2 Long term (current) use of antibiotics
CPT/HCPCS: 73610; 73630; 99283-25

== ENCOUNTER 2024-11-12 10:04 | Emergency (ER) | payer OTHER ==
[~2024-11-12] VITALS: Ht 157.5 cm; Wt 79.4 kg
[~2024-11-12 10:04] MED LIST changes: +CEPH500 PO; +DOCU100 PO; +DOCUZEN 8.6-501 EACH PO; +MELO7.5 PO; +METO50ER PO; +MIRALAX17 GM PO; +Pantoprazole So40 MG PO; +SENN187 PO; +SULF500 PO; +TAMS.4ER PO
[2024-11-12] MEDS ORDERED: Ketorolac Tromethamine 15mg Vial IV ONE (10:15)
[2024-11-12] MEDS ORDERED: NS 1,000 ML IV SCH (10:15)
[2024-11-12] MEDS ORDERED: Ondansetron HCl 2 MG / ML 2ML Vial IV ONE (10:15)
[2024-11-12 10:52] LABS: BASOPHILS ABSOLUTE AUTO 0.04 K/mm3 (0.00-0.23); BASOPHILS PERCENT AUTO 1 % (0-2); EOSINOPHILS ABSOLUTE AUTO 0.12 K/mm3 (0.00-0.68); EOSINOPHILS PERCENT AUTO 1 % (0-6); Hematocrit 41.8 % (33.0-51.0); Hemoglobin 13.7 g/dL (11.5-16.0); IMMATURE GRAN ABSOLUTE AUTO 0.03 K/mm3 (0.00-0.10); IMMATURE GRAN PERCENT AUTO 0 % (0-1); LYMPHOCYTES PERCENT AUTO 32 % (21-46); MONOCYTES ABSOLUTE AUTO 0.67 K/mm3 (0.16-1.47); MONOCYTES PERCENT AUTO 8 % (4-13); Mean Corpuscular HGB 32.9 pg (26.0-34.0); Mean Corpuscular HGB Conc 32.8 g/dL (31.5-36.5); Mean Corpuscular Volume 101 fL (80-100); Mean Platelet Volume 11.3 fL (9.1-12.4); NEUTROPHILS ABSOLUTE AUTO 5.09 K/mm3 (1.96-9.15); NEUTROPHILS PERCENT AUTO 58 % (41-73); Platelet Count 176 K/mm3 (150-400); RDW Coefficient Variation 12.9 % (11.7-14.2); RDW Standard Deviation 47.8 fL (35.1-46.3); Red Blood Cell Count 4.16 M/mm3 (3.80-5.20); White Blood Cell Count 8.75 K/mm3 (4.00-11.30)
[2024-11-12 11:04] LABS: Bilirubin, Total 0.5 mg/dL (0.1-1.0); Bun/Creatinine Ratio 13.7 (12.0-20.0); Calcium, Blood 9.1 mg/dL (8.5-10.1); Creatinine, Blood 0.88 mg/dL (0.40-1.00); Globulin, Blood 4.1 g/dL (2.2-4.0); Potassium, Blood 3.9 mmol/L (3.5-5.5); Total Protein, Blood 8.1 g/dL (6.4-8.2)
[2024-11-12] MEDS ORDERED: HYDROmorphone HCl/Pf 1MG SYR IV ONE ×3 (11:05→14:50)
[2024-11-12] MEDS ORDERED: Ketorolac Tromethamine 30mg Vial IV ONE (12:00)
[2024-11-12 12:20] LABS: Source, Urine Clean Catch
[2024-11-12 12:24] LABS: Appearance, Urine Clear (Clear); Blood, Urine Neg (Neg); Color, Urine Amber (P-Yellow); Glucose Qualitative, Urine Neg (Neg); Ketones, Urine 1+ (Neg); Leukocyte Esterase, Urine 1+ (Neg); Nitrite, Urine Neg (Neg); Protein, Urine 2+ (Neg); Specific Gravity, Urine 1.015 (1.003-1.022); Urobilinogen, Urine NORM (Normal)
[2024-11-12 12:42] LABS: Bilirubin, Urine 1+ (Neg)
[2024-11-12 12:46] LABS: Bacteria Many /hpf; Mucus Heavy (0-Heavy); Red Blood Cells, Urine 0-2 /hpf (0-2); Squamous Epithelial Cells Not Seen /hpf (Few)
[2024-11-12] MEDS ORDERED: Methyl Salicylate/Menth/Camph 57 GM TUBE TOP ONE (12:50)
[2024-11-12] MEDS ORDERED: Methocarbamol 500 MG Tab PO ONE (12:50)
[2024-11-12] MEDS ORDERED: Trimethoprim/Sulfamethoxazole DS Tab PO ONE (14:50)
[2024-11-12 14:52] VITALS: BP 107/76
[2024-11-12] MEDS ORDERED: SULTRIDS PO (15:15)
== END 2024-11-12 15:28 | disposition home or self-care (01) ==
LOC: ER 10:04
PROVIDERS: Physician Assistant
DX: N12 Tubulo-interstitial nephritis, not specified as acute or chronic (principal); G89.29 Other chronic pain; M54.9 Dorsalgia, unspecified; I10 Essential (primary) hypertension; I25.2 Old myocardial infarction; F17.210 Nicotine dependence, cigarettes, uncomplicated; Z79.899 Other long term (current) drug therapy; Z79.82 Long term (current) use of aspirin; Z79.01 Long term (current) use of anticoagulants; Z88.5 Allergy status to narcotic agent; Z88.8 Allergy status to other drugs, medicaments and biological substances; Z88.7 Allergy status to serum and vaccine
CPT/HCPCS: 74177; 80053; 81001; 85025; 87086; 96361; 96374-59; 96375; 96376; 99284-25; A9270; J1171; J1885; J2405; J7030; Q9967

== ENCOUNTER 2024-11-19 00:29 | Emergency (ER) | payer OTHER ==
[~2024-11-19] VITALS: Ht 157.5 cm; Wt 79.4 kg
[~2024-11-19 00:29] MED LIST changes: +SULTRIDS PO
[2024-11-19 01:09] LABS: BASOPHILS ABSOLUTE AUTO 0.06 K/mm3 (0.00-0.23); BASOPHILS PERCENT AUTO 1 % (0-2); EOSINOPHILS ABSOLUTE AUTO 0.16 K/mm3 (0.00-0.68); EOSINOPHILS PERCENT AUTO 1 % (0-6); Hematocrit 35.3 % (33.0-51.0); Hemoglobin 11.8 g/dL (11.5-16.0); IMMATURE GRAN ABSOLUTE AUTO 0.05 K/mm3 (0.00-0.10); IMMATURE GRAN PERCENT AUTO 0 % (0-1); LYMPHOCYTES ABSOLUTE AUTO 3.38 K/mm3 (0.84-5.20); LYMPHOCYTES PERCENT AUTO 27 % (21-46); MONOCYTES ABSOLUTE AUTO 0.96 K/mm3 (0.16-1.47); MONOCYTES PERCENT AUTO 8 % (4-13); Mean Corpuscular HGB Conc 33.4 g/dL (31.5-36.5); Mean Corpuscular Volume 98 fL (80-100); NEUTROPHILS ABSOLUTE AUTO 7.88 K/mm3 (1.96-9.15); NEUTROPHILS PERCENT AUTO 63 % (41-73); NRBC ABSOLUTE 0.00 K/mm3 (0.00-0.02); NRBC Auto 0.0 /100 WBC (0.0-0.2); Platelet Count 161 K/mm3 (150-400); RDW Coefficient Variation 12.7 % (11.7-14.2); RDW Standard Deviation 45.2 fL (35.1-46.3)
[2024-11-19 01:37] LABS: Source, Urine Clean Catch
[2024-11-19 01:42] LABS: Bilirubin, Urine Neg (Neg); Glucose Qualitative, Urine Neg (Neg); Ketones, Urine Neg (Neg); Leukocyte Esterase, Urine 1+ (Neg); Protein, Urine 2+ (Neg); Specific Gravity, Urine 1.025 (1.003-1.022); Urobilinogen, Urine NORM (Normal)
[2024-11-19 01:43] LABS: Alanine Aminotransfer (ALT/SGP 20.0 U/L (12-78); Albumin, Blood 4.1 g/dL (3.4-5.0); Albumin/Globulin Ratio 1.2 (0.8-1.8); Anion Gap 8.0 mmol/L (3-11); Aspartate Aminotrans (AST/SGOT 17.0 U/L (12-37); Bilirubin, Total 0.3 mg/dL (0.1-1.0); Blood Urea Nitrogen 19.0 mg/dL (8-24); CO2, Blood 23.0 mmol/L (21-32); Calcium, Blood 8.4 mg/dL (8.5-10.1); Chloride, Blood 107.0 mmol/L (98-108); Creatinine, Blood 1.21 mg/dL (0.40-1.00); Globulin, Blood 3.5 g/dL (2.2-4.0); Glucose, Blood 110.0 mg/dL (70-99); Potassium, Blood 3.6 mmol/L (3.5-5.5); Sodium, Blood 134.0 mmol/L (136-145); Total Protein, Blood 7.6 g/dL (6.4-8.2)
[2024-11-19 01:53] LABS: Color, Urine Yellow (P-Yellow)
[2024-11-19 01:54] LABS: Red Blood Cells, Urine 0-2 /hpf (0-2)
[2024-11-19] MEDS ORDERED: NS 1,000 ML IV SCH (02:35)
[2024-11-19] MEDS ORDERED: Ketorolac Tromethamine 30mg Vial IV ONE (02:35)
[2024-11-19] MEDS ORDERED: Ondansetron HCl 2 MG / ML 2ML Vial IV ONE (02:35)
[2024-11-19] MEDS ORDERED: HYDROmorphone HCl/Pf 1MG SYR IV ONE ×2 (03:35→05:30)
[2024-11-19 05:35] VITALS: BP 117/76
== END 2024-11-19 05:52 | disposition home or self-care (01) ==
LOC: ER 00:29
PROVIDERS: Emergency Medicine
DX: N76.0 Acute vaginitis (principal); I10 Essential (primary) hypertension; B96.89 Other specified bacterial agents as the cause of diseases classified elsewhere; E11.42 Type 2 diabetes mellitus with diabetic polyneuropathy; Z88.5 Allergy status to narcotic agent; Z88.7 Allergy status to serum and vaccine; Z79.899 Other long term (current) drug therapy; Z79.82 Long term (current) use of aspirin; Z90.49 Acquired absence of other specified parts of digestive tract; Z90.711 Acquired absence of uterus with remaining cervical stump; F17.200 Nicotine dependence, unspecified, uncomplicated
CPT/HCPCS: 80053; 81001; 83690; 85025; 87086; 96361; 96374; 96375; 96376; 99284-25; J1171; J1885; J2405; J7030

== ENCOUNTER 2024-11-22 12:28 | Emergency (ER) | payer MEDICARE, OTHER ==
[~2024-11-22] VITALS: Ht 157.5 cm; Wt 74.8 kg
[2024-11-22 13:11] VITALS: BP 114/69
[2024-11-22 14:45] LABS: BASOPHILS ABSOLUTE AUTO 0.04 K/mm3 (0.00-0.23); BASOPHILS PERCENT AUTO 0 % (0-2); EOSINOPHILS ABSOLUTE AUTO 0.17 K/mm3 (0.00-0.68); EOSINOPHILS PERCENT AUTO 2 % (0-6); Hematocrit 37.9 % (33.0-51.0); Hemoglobin 12.6 g/dL (11.5-16.0); IMMATURE GRAN ABSOLUTE AUTO 0.04 K/mm3 (0.00-0.10); IMMATURE GRAN PERCENT AUTO 0 % (0-1); LYMPHOCYTES ABSOLUTE AUTO 2.03 K/mm3 (0.84-5.20); LYMPHOCYTES PERCENT AUTO 22 % (21-46); MONOCYTES ABSOLUTE AUTO 0.64 K/mm3 (0.16-1.47); MONOCYTES PERCENT AUTO 7 % (4-13); Mean Corpuscular HGB Conc 33.2 g/dL (31.5-36.5); Mean Corpuscular Volume 98 fL (80-100); NEUTROPHILS ABSOLUTE AUTO 6.23 K/mm3 (1.96-9.15); NEUTROPHILS PERCENT AUTO 68 % (41-73); NRBC ABSOLUTE 0.00 K/mm3 (0.00-0.02); NRBC Auto 0.0 /100 WBC (0.0-0.2); RDW Coefficient Variation 13.1 % (11.7-14.2); RDW Standard Deviation 47.0 fL (35.1-46.3)
[2024-11-22 15:04] LABS: Alanine Aminotransfer (ALT/SGP 24.0 U/L (12-78); Albumin, Blood 3.9 g/dL (3.4-5.0); Albumin/Globulin Ratio 1.2 (0.8-1.8); Anion Gap 6.0 mmol/L (3-11); Aspartate Aminotrans (AST/SGOT 24.0 U/L (12-37); Bilirubin, Total 0.5 mg/dL (0.1-1.0); Blood Urea Nitrogen 7.0 mg/dL (8-24); CO2, Blood 25.0 mmol/L (21-32); Calcium, Blood 9.0 mg/dL (8.5-10.1); Chloride, Blood 110.0 mmol/L (98-108); Creatinine, Blood 0.67 mg/dL (0.40-1.00); Globulin, Blood 3.3 g/dL (2.2-4.0); Glucose, Blood 115.0 mg/dL (70-99); Potassium, Blood 4.1 mmol/L (3.5-5.5); Sodium, Blood 137.0 mmol/L (136-145); Total Protein, Blood 7.2 g/dL (6.4-8.2)
[2024-11-22 15:13] LABS: Platelet Count 123 K/mm3 (150-400)
[2024-11-22 16:04] LABS: Source, Urine Clean Catch
[2024-11-22 16:15] LABS: Bilirubin, Urine Neg (Neg); Color, Urine Amber (P-Yellow); Glucose Qualitative, Urine Neg (Neg); Ketones, Urine Neg (Neg); Leukocyte Esterase, Urine 1+ (Neg); Protein, Urine 2+ (Neg); Specific Gravity, Urine 1.015 (1.003-1.022); Urobilinogen, Urine NORM (Normal)
[2024-11-22 16:24] LABS: Red Blood Cells, Urine 0-2 /hpf (0-2)
== END 2024-11-22 16:18 | disposition left against medical advice (07) ==
LOC: ER 12:28
PROVIDERS: Physician Assistant
DX: K14.6 Glossodynia (principal); K13.79 Other lesions of oral mucosa; Z53.21 Procedure and treatment not carried out due to patient leaving prior to being seen by health care provider
CPT/HCPCS: 36415; 80053; 81001; 85025; 87086; 99282

== ENCOUNTER 2024-11-28 21:25 | Inpatient (IN) | payer MEDICARE ==
[~2024-11-28] VITALS: Ht 157.5 cm; Wt 77.1 kg
[2024-11-28] MEDS ORDERED: Ondansetron HCl 2 MG / ML 2ML Vial IV ONE (21:40)
[2024-11-28] MEDS ORDERED: NS 1,000 ML IV SCH (21:40)
[2024-11-28 22:05] LABS: BASOPHILS ABSOLUTE AUTO 0.03 K/mm3 (0.00-0.23); BASOPHILS PERCENT AUTO 0 % (0-2); EOSINOPHILS ABSOLUTE AUTO 0.16 K/mm3 (0.00-0.68); EOSINOPHILS PERCENT AUTO 2 % (0-6); Hematocrit 36.2 % (33.0-51.0); Hemoglobin 11.5 g/dL (11.5-16.0); IMMATURE GRAN ABSOLUTE AUTO 0.03 K/mm3 (0.00-0.10); IMMATURE GRAN PERCENT AUTO 0 % (0-1); LYMPHOCYTES ABSOLUTE AUTO 2.77 K/mm3 (0.84-5.20); LYMPHOCYTES PERCENT AUTO 37 % (21-46); MONOCYTES ABSOLUTE AUTO 0.57 K/mm3 (0.16-1.47); MONOCYTES PERCENT AUTO 8 % (4-13); Mean Corpuscular HGB Conc 31.8 g/dL (31.5-36.5); Mean Corpuscular Volume 101 fL (80-100); NEUTROPHILS ABSOLUTE AUTO 4.00 K/mm3 (1.96-9.15); NEUTROPHILS PERCENT AUTO 53 % (41-73); NRBC ABSOLUTE 0.00 K/mm3 (0.00-0.02); NRBC Auto 0.0 /100 WBC (0.0-0.2); Platelet Count 123 K/mm3 (150-400); RDW Coefficient Variation 12.8 % (11.7-14.2); RDW Standard Deviation 48.0 fL (35.1-46.3)
[2024-11-28 22:22] LABS: Source, Urine Clean Catch
[2024-11-28 22:25] LABS: Bilirubin, Urine Neg (Neg); Glucose Qualitative, Urine Neg (Neg); Ketones, Urine Neg (Neg); Leukocyte Esterase, Urine Neg (Neg); Protein, Urine 2+ (Neg); Specific Gravity, Urine 1.015 (1.003-1.022); Urobilinogen, Urine NORM (Normal)
[2024-11-28 22:27] LABS: Alanine Aminotransfer (ALT/SGP 27.0 U/L (12-78); Albumin, Blood 3.4 g/dL (3.4-5.0); Albumin/Globulin Ratio 0.9 (0.8-1.8); Anion Gap 2.0 mmol/L (3-11); Aspartate Aminotrans (AST/SGOT 22.0 U/L (12-37); Bilirubin, Total 0.2 mg/dL (0.1-1.0); Blood Urea Nitrogen 11.0 mg/dL (8-24); CO2, Blood 27.0 mmol/L (21-32); Calcium, Blood 8.5 mg/dL (8.5-10.1); Chloride, Blood 109.0 mmol/L (98-108); Creatinine, Blood 1.25 mg/dL (0.40-1.00); Globulin, Blood 3.6 g/dL (2.2-4.0); Glucose, Blood 111.0 mg/dL (70-99); Potassium, Blood 4.2 mmol/L (3.5-5.5); Sodium, Blood 134.0 mmol/L (136-145); Total Protein, Blood 7.0 g/dL (6.4-8.2)
[2024-11-28 22:38] LABS: Color, Urine Yellow (P-Yellow)
[2024-11-28 22:39] LABS: Red Blood Cells, Urine TNTC /hpf (0-2); White Blood Cells, Urine Not Seen /hpf (0-5)
[2024-11-28] MEDS ORDERED: Miconazole 2% Vaginal Cream 45 GM VAG ONE (22:55)
[2024-11-28] MEDS ORDERED: HYDROmorphone HCl/Pf 1MG SYR IV PRN (22:55)
[2024-11-29] MEDS ORDERED: Percocet 10-321 EACH PO (02:25)
[2024-11-29] MEDS ORDERED: DILT120ERA PO (02:28)
[2024-11-29 02:51] VITALS: BP 107/64
[2024-11-29] MEDS ORDERED: FentaNYL Citrate 50 MCG/ML 2 ML Injection IV PRN (03:30)
[2024-11-29] MEDS ORDERED: NS 1,000 ML IV SCH (03:30)
[2024-11-29] MEDS ORDERED: Ondansetron HCl 2 MG / ML 2ML Vial IV PRN (03:30)
[2024-11-29 05:07] LABS: BASOPHILS ABSOLUTE AUTO 0.02 K/mm3 (0.00-0.23); BASOPHILS PERCENT AUTO 0 % (0-2); EOSINOPHILS ABSOLUTE AUTO 0.17 K/mm3 (0.00-0.68); EOSINOPHILS PERCENT AUTO 3 % (0-6); Hematocrit 33.3 % (33.0-51.0); Hemoglobin 10.6 g/dL (11.5-16.0); IMMATURE GRAN ABSOLUTE AUTO 0.01 K/mm3 (0.00-0.10); IMMATURE GRAN PERCENT AUTO 0 % (0-1); LYMPHOCYTES ABSOLUTE AUTO 2.73 K/mm3 (0.84-5.20); LYMPHOCYTES PERCENT AUTO 46 % (21-46); MONOCYTES ABSOLUTE AUTO 0.51 K/mm3 (0.16-1.47); MONOCYTES PERCENT AUTO 9 % (4-13); Mean Corpuscular HGB Conc 31.8 g/dL (31.5-36.5); Mean Corpuscular Volume 103 fL (80-100); NEUTROPHILS ABSOLUTE AUTO 2.46 K/mm3 (1.96-9.15); NEUTROPHILS PERCENT AUTO 42 % (41-73); NRBC ABSOLUTE 0.00 K/mm3 (0.00-0.02); NRBC Auto 0.0 /100 WBC (0.0-0.2); Platelet Count 102 K/mm3 (150-400); RDW Coefficient Variation 12.8 % (11.7-14.2); RDW Standard Deviation 48.5 fL (35.1-46.3)
--- NOTE | 2024-11-29 05:23 | NUR ---
SUMMARY: PT AOX4, IND IN ROOM. PT RECEIVED PRN PAIN AND NAUSEA MEDICATION PER EMAR. HAVING SHARP PAIN TO FLANK. PT SEEN BY MINE SUPERINTENDENT PROVIDER THIS AM AND WAS PUT NPO OF 529. PT TO HAVE FAMILY BRING IN OXYBUTYNIN DOSE FROM HOME. NEEDING STOOL SAMPLE TO RULE OUT CDIFF DUE TO LOOSE DARK STOOLS PER PT. NO BM YET. NSR ON TELE PER SUPERVISOR PARKING LOT.
[2024-11-29 05:25] LABS: Alanine Aminotransfer (ALT/SGP 27.0 U/L (12-78); Albumin, Blood 3.1 g/dL (3.4-5.0); Albumin/Globulin Ratio 1.0 (0.8-1.8); Anion Gap 5.0 mmol/L (3-11); Aspartate Aminotrans (AST/SGOT 26.0 U/L (12-37); Bilirubin, Total 0.2 mg/dL (0.1-1.0); Blood Urea Nitrogen 10.0 mg/dL (8-24); CO2, Blood 27.0 mmol/L (21-32); Calcium, Blood 7.9 mg/dL (8.5-10.1); Chloride, Blood 111.0 mmol/L (98-108); Creatinine, Blood 0.95 mg/dL (0.40-1.00); Globulin, Blood 3.1 g/dL (2.2-4.0); Glucose, Blood 115.0 mg/dL (70-99); Potassium, Blood 4.2 mmol/L (3.5-5.5); Sodium, Blood 139.0 mmol/L (136-145); Total Protein, Blood 6.2 g/dL (6.4-8.2)
[2024-11-29] MEDS ORDERED: Polyethylene Glycol 3350 17 gm PO SCH (06:30)
[2024-11-29] MEDS ORDERED: Insulin Human Lispro 100 Units/ML 3ML Syringe SC SCH (07:30)
--- NOTE | 2024-11-29 07:31 | NUR ---
PATIENT STATES MORPHINE IS NOT AN ALLERGY, REQUESTED IT TO BE REMOVED. STATES IT MADE HER ITCH MILDLY.
[2024-11-29] MEDS ORDERED: HYDROmorphone HCl/Pf 1MG SYR IV PRN (07:55)
[2024-11-29] MEDS ORDERED: Albuterol HFA200 ACT/6.7 GM INH INH PRN (08:10)
[2024-11-29 08:13] VITALS: BP 174/160
[2024-11-29] MEDS ORDERED: Isosorbide Mono30 MG PO (08:23)
[2024-11-29] MEDS ORDERED: ASCORBIC ACID500 MG PO (08:33)
[2024-11-29] MEDS ORDERED: VITAMIN D31000 UNI1 PO (08:34)
--- NOTE | 2024-11-29 08:35 | NUR ---
CALLED DR MCALLISTER FOR DIFFERENT PAIN RELIEF. PATIENT ALMOST IMMEDIATELY STARTED RETCHING AND HAVING NAUSEA WHEN GIVEN FENTANYL. ORDERS RECEIVED.
[2024-11-29] MEDS ORDERED: Isosorbide Mononitrate 60 MG TABCR PO SCH (09:00)
[2024-11-29 11:39] VITALS: BP 94/54
[2024-11-29 12:48] LABS: C DIFFICILE DNA POSITIVE (Negative)
[2024-11-29 17:22] VITALS: BP 91/59
--- NOTE | 2024-11-29 17:38 | NUR ---
SHIFT SUMMARY PATIENT INDEPENDENT IN ROOM, A/O X4. IN CONVERSATION WITH DR MCALLISTER, PATIENT VOICED PREFERENCE WITH DILAUDED BEING CONTINUED AT CURRENT ORDER RATHER THAN CHANGING TO HOME DOSE OF OXY WITH DILAUDED FOR BREAKTHROUGH, DR MCALLISTER OBLIGED. PATIENT REPORTS 7-10/10 PAIN IN RIGHT ABDOMEN AND FLANK. STOOL SAMPLE SENT. UROLOGY CONSULTED IN ROOM THIS SHIFT, TESTING ORDERED FOR TOMORROW. MEDICAL RECORDS REQUESTED FROM [facility], SHOULD ARRIVE SATURDAY. ABLE TO MAKE NEEDS KNOWN. CALL LIGHT IN REACH, CARES ONGOING.
[2024-11-29 19:38] VITALS: BP 93/51
--- NOTE | 2024-11-29 22:21 | NUR ---
NURSING NOTE: PT BROKE TOOTH FROM BITING/ PICKING, R LOWER MOLAR. JUST THE TOP CAME OFF LEAVING CHARP ENAMLE AND TISSUE. BEOKEN ENAMLE PLACED IN SPECIMAN CUP. PROVIDER NOTIFIED, ORAJEL GIVEN FOR PAIN, PT STATES ITS WORKING WELL. CONTINUING CARE.
[2024-11-29 23:45] VITALS: BP 94/57
--- NOTE | 2024-11-30 04:44 | NUR ---
SHIFT SUMMARY: PT AOX4, IND IN THE ROOM, CALLS APPROPRIATELY AND ABLE TO MAKE NEEDS KNOWN. TALKATIVE AND ANXIOUS. A LOT OF COMPLAINTS OF PAIN AND DISCOMFORT, MEDICATED PER EMR. HAD A TOOTH BREAK, PROVIDER NOTIFIED AND ORAJEL GIVEN WHICH HAS HELPED. CONTINUES TO TALK ABOUT EXTENSIVE MEDICAL HISTORY AND IS VERY ANXIOUS ABOUT HER CARE. PLEASANT, JUST NEEDING ATTENTION AND SUPPORT. HAVING OKAY ORAL INTAKE, BLOOD SUGARS HAVE BEEN STABLE, AND VITAL SIGNS STABLE. PT IN BED RESTING, BED IN LOWEST POSITION, CALL LIGHT IN REACH. CONTINUING CARE.
[2024-11-30 08:07] VITALS: BP 135/60
[2024-11-30] MEDS ORDERED: OXYBUTYNIN 15 MG PO SCH (09:00)
[2024-11-30 12:03] VITALS: BP 105/73
[2024-11-30] MEDS ORDERED: OxyCODONE 10/Acetamin 325 TABLET PO ONE (14:00)
[2024-11-30] MEDS ORDERED: OxyCODONE 10/Acetamin 325 TABLET PO PRN (14:00)
--- NOTE | 2024-11-30 15:25 | NUR ---
CALLED DR MATHEWS (UROLOGY)- PT HAS BEEN WAITING ALL DAY FOR A CYSTOGRAM. CALLED DR TO DETERMINE WHEN THE PROCEDURE WOULD BE DONE. PT HAS NOT BEEN NPO HE SAID SHE CAN EAT (PER PT STATEMENT AND ORDERS). PER DR MATHEWS HE SPOKE TO THE RADIOLOGUST LAST NIGHT AND THEY WERE NOT ABLE TO DO THE PROCEDURE YESTERDAY, SO IT WOULD BE DONE TODAY. CALLED IMAGING AND SPOKE TO RADIOLOGY ABOUT THE PROCEDURE. THEY DO NOT DO THIS PROCEDURE ON INPATIENTS ONLY ON AN OUTPATIENT BASIS. PT OVERHEARD THIS PHONE CALL AND GOT UPSET SAYING JUST ASK DR MATHEWS TO PUT IN THE NEPHROSTOMY TUBE THEN. CALLED DR MATHEWS AGAIN TO EXPLAIN THE SITUATION. PASSED ON TO HIM THAT THE PT IS REQUESTING A NEPHROSTOMY TUBE IF SHE CAN NOT GET THE IMAGE. HE IS AWARE AND STATED HE WILL COME MEET WITH THE PT AROUND 1730 THIS EVENING TO DISCUSS THE PLAN, AFTER HE CALLS RADIOLOGY WELL. CALLED DR JEFFERS TO UPDATE HIM SO HE IS AWARE OF THE ISSUE, NO ANSWER AND NO VOICEMAIL ANSWERED.
[2024-11-30 15:53] VITALS: BP 92/68
[2024-11-30] MEDS ORDERED: HYDROmorphone HCl/Pf 1MG SYR IV PRN (17:05)
[2024-11-30 19:45] VITALS: BP 101/66
--- NOTE | 2024-11-30 20:18 | NUR ---
SHIFT SUMMARY- DR MATHEWS ORDERED A NM KIDNEY FUNCTION SCAN FOR THE PT TOMORROW. UNABLE TO SEE IN ORDER MANAGEMENT, PROVIDED A VERBAL ORDER FOR THIS SCA, PLACED IN ORDER MANAGEMENT. IT IS STILL NOT VISIBLE, LIKELY BECAUSE IT IS FOR A FUTURE DATE? PT IS AWARE OF THE PLAN IS DR JEFFERS. PT MEDICATED FOR PAIN AT THE TIME OF SHIFT CHANGE. NO S&S OF DISTRESS NOTED.
[2024-12-01 00:05] VITALS: BP 110/62
[2024-12-01 03:53] VITALS: BP 110/76
[2024-12-01 05:37] LABS: BASOPHILS ABSOLUTE AUTO 0.03 K/mm3 (0.00-0.23); BASOPHILS PERCENT AUTO 1 % (0-2); EOSINOPHILS ABSOLUTE AUTO 0.17 K/mm3 (0.00-0.68); EOSINOPHILS PERCENT AUTO 3 % (0-6); Hematocrit 32.2 % (33.0-51.0); Hemoglobin 10.4 g/dL (11.5-16.0); IMMATURE GRAN ABSOLUTE AUTO 0.02 K/mm3 (0.00-0.10); IMMATURE GRAN PERCENT AUTO 0 % (0-1); LYMPHOCYTES ABSOLUTE AUTO 2.91 K/mm3 (0.84-5.20); LYMPHOCYTES PERCENT AUTO 49 % (21-46); MONOCYTES ABSOLUTE AUTO 0.58 K/mm3 (0.16-1.47); MONOCYTES PERCENT AUTO 10 % (4-13); Mean Corpuscular HGB Conc 32.3 g/dL (31.5-36.5); Mean Corpuscular Volume 102 fL (80-100); NEUTROPHILS ABSOLUTE AUTO 2.29 K/mm3 (1.96-9.15); NEUTROPHILS PERCENT AUTO 38 % (41-73); NRBC ABSOLUTE 0.00 K/mm3 (0.00-0.02); NRBC Auto 0.0 /100 WBC (0.0-0.2); Platelet Count 110 K/mm3 (150-400); RDW Coefficient Variation 12.7 % (11.7-14.2); RDW Standard Deviation 47.7 fL (35.1-46.3)
--- NOTE | 2024-12-01 07:43 | NUR ---
PT HAD WOUND VAC CHANGED DURING THIS SHIFT. WOUND BED SHOWS 100% RED GRANULATED TISSUE WITH MUSCLE AND FASCIA VISIBLE. XEROFORM WAS REMOVED AND WOUND VAC WAS REPLACED WITH 2 PIECES OF BLACK FOAM. PT IS DRAINING SMALL AMOUNT OF SANGUINES DRAINAGE AT 120 MMHG.WOUND EDGES SHOW EPIBOLE AND INTACT WOUND EDGES WITH A SMALL PROXIMAL SECTION OF WOUND EDGE AT 1200 WITH UNDERMINDING NOTED AT 1 CM. PERIWOUND HAS H.R.S.T. AN CHERI WRAP LIGHTLY PLACED OVER WOUND. LLE HAS 1= EDEMA NOTED. PT HAS BEEN URINATING CLEAR YELLOW URINE WITHOUT DIFFICULTY T/O THIS SHIFT. AFTER DRESSING CHANGE PT HAD UNCONTROLLED PAIN AND 1MG IV DILAUDIUD WAS GIVEN AND WAS EFFECTIVE IN RELIEVING PAIN TO A TOLERABLE LEVEL. PT DID NOT SLEEP T/O THIS SHIFT.
--- NOTE | 2024-12-01 07:51 | NUR ---
PT HAS HAD SIGNIFICANT PAIN T/O THIS SHIFT. PAIN MEDICATIONS GIVEN EVERY 2 HOURS. PT A&OX4, INDEPENDENT IN RM, TILE DITCHER=X4. PT DID NOT SLEEP T/O THIS SHIFT. POST RESIDUAL VOID WAS 92 ML. PT PLEASANT AND COOPERATIVE.
[2024-12-01 08:02] VITALS: BP 103/72
[2024-12-01 12:22] LABS: Alanine Aminotransfer (ALT/SGP 28.0 U/L (12-78); Albumin, Blood 3.4 g/dL (3.4-5.0); Albumin/Globulin Ratio 1.0 (0.8-1.8); Anion Gap 16.0 mmol/L (3-11); Aspartate Aminotrans (AST/SGOT 24.0 U/L (12-37); Bilirubin, Total 0.2 mg/dL (0.1-1.0); Blood Urea Nitrogen 8.0 mg/dL (8-24); CO2, Blood 23.0 mmol/L (21-32); Calcium, Blood 8.8 mg/dL (8.5-10.1); Chloride, Blood 105.0 mmol/L (98-108); Creatinine, Blood 0.78 mg/dL (0.40-1.00); Globulin, Blood 3.5 g/dL (2.2-4.0); Glucose, Blood 114.0 mg/dL (70-99); Potassium, Blood 4.2 mmol/L (3.5-5.5); Sodium, Blood 140.0 mmol/L (136-145); Total Protein, Blood 6.9 g/dL (6.4-8.2)
[2024-12-01 15:27] VITALS: BP 127/90
--- NOTE | 2024-12-01 16:55 | NUR ---
SHIFT SUMMARY PT AOX4, COOPERATIVE, ABLE TO MAKE NEEDS KNOWN. PT IS IND IN ROOM, STILL ON ISOLATION FOR CDIFF PER INFECTION CONTROL. PT IS ON REGULAR DIET NOW PER MD ORDER. DID HAVE NUC MED STUDY PERFORMED. PT CONSTANTLY AT 7+ PAIN LEVEL. PT IS EMOTIONALLY LABILE. PT IS UNSURE OF PLAN GOING FORWARD. POSSIBLE PLAN IS WITH INTERVENTIONAL RADIOLOGY. BED IN LOWEST POSITION, CALL LIGHT WITHIN REACH.
[2024-12-01 20:06] VITALS: BP 131/90
[2024-12-01 20:08] VITALS: BP 116/71
[2024-12-02 04:50] VITALS: BP 119/66
--- NOTE | 2024-12-02 04:52 | NUR ---
SHIFT SUMMARY: PT AOX4 IND IN THE ROOM. ON ENTERIC CONTACT FOR TESTING POSITIVE FOR CDIFF ALTHOUGH TOXINS WERE NEGATIVE. PT WAS UPSET ABOUT BEING IN CONTACT PRECAUTIONS BUT WAS OKAY WITH IT AFTER BEING EXPLAINED THAT IT IS OUT OF CONSIDERATIONS FOR OTHERS. PT ENDORSES FRUSTRATION ABOUT DIAGNOSIS FROM SCAN OTHER DAY AND ABOUT THE PLAN MOVING FORWARD. ENDORSING SEVERE PAIN MEDICATED PER EMR, ALTHOUGH PT SLEPT WELL WHEN SHE WAS ABLE TO GET TO SLEEP. NO ACUTE OVERNIGHT EVENTS. PT IN BED RESTING, BED IN LOWEST POSITION, CALL LIGHT IN REACH. CONTINUING CARE.
--- NOTE | 2024-12-02 05:46 | NUR ---
NURSING NOTE: PT WOKE UP SOBBING IN PAIN, MEDICATED PER EMR. COMPLAINS OF HAVING AN INCONT VOID WHICH SHE STATES IS NOT NORMAL FOR HER. BEDDING CHANGED. CONTINUING CARE.
[2024-12-02 06:41] LABS: BASOPHILS ABSOLUTE AUTO 0.02 K/mm3 (0.00-0.23); BASOPHILS PERCENT AUTO 0 % (0-2); EOSINOPHILS ABSOLUTE AUTO 0.16 K/mm3 (0.00-0.68); EOSINOPHILS PERCENT AUTO 3 % (0-6); Hematocrit 33.6 % (33.0-51.0); Hemoglobin 11.1 g/dL (11.5-16.0); IMMATURE GRAN ABSOLUTE AUTO 0.02 K/mm3 (0.00-0.10); IMMATURE GRAN PERCENT AUTO 0 % (0-1); LYMPHOCYTES ABSOLUTE AUTO 2.29 K/mm3 (0.84-5.20); LYMPHOCYTES PERCENT AUTO 44 % (21-46); MONOCYTES ABSOLUTE AUTO 0.54 K/mm3 (0.16-1.47); MONOCYTES PERCENT AUTO 10 % (4-13); Mean Corpuscular HGB Conc 33.0 g/dL (31.5-36.5); Mean Corpuscular Volume 101 fL (80-100); NEUTROPHILS ABSOLUTE AUTO 2.14 K/mm3 (1.96-9.15); NEUTROPHILS PERCENT AUTO 41 % (41-73); NRBC ABSOLUTE 0.00 K/mm3 (0.00-0.02); NRBC Auto 0.0 /100 WBC (0.0-0.2); Platelet Count 116 K/mm3 (150-400); RDW Coefficient Variation 12.6 % (11.7-14.2); RDW Standard Deviation 47.3 fL (35.1-46.3)
[2024-12-02 07:12] LABS: Alanine Aminotransfer (ALT/SGP 27.0 U/L (12-78); Albumin, Blood 3.2 g/dL (3.4-5.0); Albumin/Globulin Ratio 0.9 (0.8-1.8); Anion Gap 6.0 mmol/L (3-11); Aspartate Aminotrans (AST/SGOT 26.0 U/L (12-37); Bilirubin, Total 0.3 mg/dL (0.1-1.0); Blood Urea Nitrogen 6.0 mg/dL (8-24); CO2, Blood 27.0 mmol/L (21-32); Calcium, Blood 8.1 mg/dL (8.5-10.1); Chloride, Blood 109.0 mmol/L (98-108); Creatinine, Blood 0.78 mg/dL (0.40-1.00); Globulin, Blood 3.6 g/dL (2.2-4.0); Glucose, Blood 98.0 mg/dL (70-99); Potassium, Blood 4.1 mmol/L (3.5-5.5); Sodium, Blood 138.0 mmol/L (136-145); Total Protein, Blood 6.8 g/dL (6.4-8.2)
[2024-12-02 08:02] VITALS: BP 135/79
--- NOTE | 2024-12-02 13:31 | NUR ---
CALLED IR OFFICE TO VERIFY CONSULT FACESHEET WAS RECEIVED. "WEI" INFORMED THIS RN CONSULT WAS RECEIVED AT APPROXIMATELY 1030 ON 12/02/24.
--- NOTE | 2024-12-02 16:22 | NUR ---
SHIFT SUMMARY PT AOX4, COOPERATIVE, ABLE TO MAKE NEEDS KNOWN. PT IS IND IN ROOM. CANNOT ACHEIVE PAIN RELIEF LESS THAN 7 OUTOF 10, WHICH IS BASELINE. IR CONSULT FAXED THIS AM. PT ON ROOM AIR, REGULAR DIET. PLAN IS FOR POSSIBLY NEPH TUBE PLACEMENT STILL. BED IN LOWEST POSITION, CALL LIGHT WITHIN REACH.
[2024-12-02 17:33] VITALS: BP 123/82
[2024-12-02] MEDS ORDERED: HYDROmorphone HCl/Pf 1MG SYR IV ONE (17:50)
[2024-12-02 19:09] VITALS: BP 99/68
--- NOTE | 2024-12-02 23:52 | NUR ---
NURSING NOTE: PT ATTEMPTED TO GIVE A RING TO THE THEATRE INSTRUCTOR, DESPITE THEATRE INSTRUCTOR EXPLAINING THAT SHE CANNOT ACCEPT IT PER HOSPITAL POLICY, CONTINUED TO PUSH THEATRE INSTRUCTOR TO TAKE THE GIFT, STATING TO KEEP IT " BETWEEN US". THEATRE INSTRUCTOR PLACED RING IN BIO BAG IN PTS CHART. PT INFORMED THIS RN AND CHARGE NURSE ABOUT THE INCIDENT. RING PLACED IN CHART AND NOT ACCEPTED BY THE THEATRE INSTRUCTOR.
--- NOTE | 2024-12-03 05:18 | NUR ---
SHIFT SUMMARY: PT AOX4 IND IN THE ROOM. CALLS APPROPRIATELY AND ABLE TO MAKE NEEDS KNOWN. ATTEMPTING TO STAY ON TOP OF PAIN ALL EVENING. PT UNABLE TO SLEEP. PT TOLERATING MEDICATIONS WELL, BUT CONTINUES TO COMPLAIN ABOUT THE RENAL ULTRASOUND ENDORSING A LOT OF PAIN, AND FRUSTRATION WITH THE PROGRESSION OF CARE/ BEING IN ISOLATION FOR CDIFF, DESPITE EDUCATION ON BOTH. PAIN MEDICATION GIVEN PER EMR. NO ACUTE OVERNIGHT EVENTS. PT REMAINS ANXIOUS ABOUT HER URINE/ KIDNEY. PT IN BED RESTING, BED IN LOWEST POSITON, CALL LIGHT IN REACH. CONTINUING CARE.
[2024-12-03 06:30] LABS: BASOPHILS ABSOLUTE AUTO 0.02 K/mm3 (0.00-0.23); BASOPHILS PERCENT AUTO 0 % (0-2); EOSINOPHILS ABSOLUTE AUTO 0.21 K/mm3 (0.00-0.68); EOSINOPHILS PERCENT AUTO 3 % (0-6); Hematocrit 34.1 % (33.0-51.0); Hemoglobin 10.9 g/dL (11.5-16.0); IMMATURE GRAN ABSOLUTE AUTO 0.03 K/mm3 (0.00-0.10); IMMATURE GRAN PERCENT AUTO 1 % (0-1); LYMPHOCYTES ABSOLUTE AUTO 2.90 K/mm3 (0.84-5.20); LYMPHOCYTES PERCENT AUTO 45 % (21-46); MONOCYTES ABSOLUTE AUTO 0.59 K/mm3 (0.16-1.47); MONOCYTES PERCENT AUTO 9 % (4-13); Mean Corpuscular HGB Conc 32.0 g/dL (31.5-36.5); Mean Corpuscular Volume 102 fL (80-100); NEUTROPHILS ABSOLUTE AUTO 2.65 K/mm3 (1.96-9.15); NEUTROPHILS PERCENT AUTO 41 % (41-73); NRBC ABSOLUTE 0.00 K/mm3 (0.00-0.02); NRBC Auto 0.0 /100 WBC (0.0-0.2); Platelet Count 125 K/mm3 (150-400); RDW Coefficient Variation 12.7 % (11.7-14.2); RDW Standard Deviation 47.8 fL (35.1-46.3)
[2024-12-03 06:45] LABS: Anion Gap 8.0 mmol/L (3-11); Blood Urea Nitrogen 6.0 mg/dL (8-24); CO2, Blood 25.0 mmol/L (21-32); Calcium, Blood 8.4 mg/dL (8.5-10.1); Chloride, Blood 108.0 mmol/L (98-108); Creatinine, Blood 0.84 mg/dL (0.40-1.00); Glucose, Blood 102.0 mg/dL (70-99); Potassium, Blood 4.3 mmol/L (3.5-5.5); Sodium, Blood 137.0 mmol/L (136-145)
[2024-12-03 07:46] VITALS: BP 122/67
--- NOTE | 2024-12-03 12:30 | NUR ---
PATIENT COMING OUT OF ROOM GRABBING LEFT LOWER FLANK/BACK STATING "I THINK I HAVE A KIDNEY STONE." CALL MADE TO DR. JEFFERS AND NOTIFIED HIM. NO NEW ORDERS.
[2024-12-03] MEDS ORDERED: NS 1,000 ML IV ONE (14:02)
[2024-12-03] MEDS ORDERED: NS 250 ML IV ONE (14:02)
[2024-12-03 16:25] VITALS: BP 94/67
--- NOTE | 2024-12-03 16:43 | NUR ---
SHIFT SUMMARY: A&OX4 THIS SHIFT. COOPERATIVE WITH CARE PROVIDED. PT AMBULATING INDEPENDENTLY IN ROOM THROUGHOUT SHIFT. MULTIPLE COMPLAINTS OF PAIN, MEDICATED PER EMAR. AT THIS TIME, PT IS AWAITING PROCEDURE TO HAVE NEPHROSTOMY TUBE PLACED. FAMILY IN TO VISIT TODAY. PT IS CURRENTLY RESTING IN BED, NPO STATUS, WITH CALL LT NEAR. BED IN THE LOWEST POSITION. BREATHING UNLABORED AND EQUAL.
--- NOTE | 2024-12-03 17:30 | NUR ---
PATIENT TAKEN DOWN IN WHEELCHAIR FOR IR-NEPH TUBE PLACEMENT. PATIENT ALERT AND NO SIGNS OR SYMPTOMS OF DISTRESS WHEN SHE LEFT THE UNIT.
[2024-12-03] MEDS ORDERED: NS 500 ML IV ONE (17:33)
[2024-12-03] MEDS ORDERED: Midazolam HCl 1MG / ML 2ML Vial ONE (17:42)
[2024-12-03] MEDS ORDERED: FentaNYL Citrate 50 MCG/ML 2 ML Injection ONE (17:43)
--- NOTE | 2024-12-03 18:18 | NUR ---
PATIENT RETURNED TO THE UNIT FROM HER PROCEDURE. ALERT IN WHEELCHAIR. R NEPH TUBE IN PLACE; SITE CLEAN, DRY, AND INTAKE. BLOOD DRAINAGE. PATIENT C/O PAIN. BINDER PLACED ON PATIENT TO SECURE TUBING.
--- NOTE | 2024-12-03 18:51 | NUR ---
CALLED AND SPOKE WITH DR. JEFFERS REGARDING PATIENT'S PAIN. SHE IS REQUESTING X2 ONE TIME DOSES OF IV DILAUDID THAT SHE CAN HAVE THIS EVENING. PER DR. JEFFERS OKAY TO ORDER. IV DILAUDID 1 MG Q4 HOURS X2.
[2024-12-03] MEDS ORDERED: HYDROmorphone HCl/Pf 1MG SYR IV PRN (18:55)
--- NOTE | 2024-12-03 19:23 | NUR ---
R NEPH TUBE DRESSING BLOODY;SATURATING THROUGH. DRESSING CHANGED.
[2024-12-03 19:47] VITALS: BP 90/51
[2024-12-04 04:52] LABS: BASOPHILS ABSOLUTE AUTO 0.03 K/mm3 (0.00-0.23); BASOPHILS PERCENT AUTO 0 % (0-2); EOSINOPHILS ABSOLUTE AUTO 0.19 K/mm3 (0.00-0.68); EOSINOPHILS PERCENT AUTO 3 % (0-6); Hematocrit 33.3 % (33.0-51.0); Hemoglobin 10.9 g/dL (11.5-16.0); IMMATURE GRAN ABSOLUTE AUTO 0.02 K/mm3 (0.00-0.10); IMMATURE GRAN PERCENT AUTO 0 % (0-1); LYMPHOCYTES ABSOLUTE AUTO 2.65 K/mm3 (0.84-5.20); LYMPHOCYTES PERCENT AUTO 40 % (21-46); MONOCYTES ABSOLUTE AUTO 0.59 K/mm3 (0.16-1.47); MONOCYTES PERCENT AUTO 9 % (4-13); Mean Corpuscular HGB Conc 32.7 g/dL (31.5-36.5); Mean Corpuscular Volume 100 fL (80-100); NEUTROPHILS ABSOLUTE AUTO 3.20 K/mm3 (1.96-9.15); NEUTROPHILS PERCENT AUTO 48 % (41-73); NRBC ABSOLUTE 0.00 K/mm3 (0.00-0.02); NRBC Auto 0.0 /100 WBC (0.0-0.2); Platelet Count 121 K/mm3 (150-400); RDW Coefficient Variation 12.6 % (11.7-14.2); RDW Standard Deviation 45.3 fL (35.1-46.3)
[2024-12-04 04:59] VITALS: BP 136/64
[2024-12-04 05:14] LABS: Albumin, Blood 3.3 g/dL (3.4-5.0); Anion Gap 8 mmol/L (3-11); Blood Urea Nitrogen 8 mg/dL (8-24); CO2, Blood 28 mmol/L (21-32); Calcium, Blood 8.8 mg/dL (8.5-10.1); Chloride, Blood 108 mmol/L (98-108); Creatinine, Blood 0.74 mg/dL (0.40-1.00); Glucose, Blood 87 mg/dL (70-99); Phosphorus, Blood 3.9 mg/dL (2.5-4.9); Potassium, Blood 4.5 mmol/L (3.5-5.5); Sodium, Blood 139 mmol/L (136-145)
--- NOTE | 2024-12-04 06:14 | NUR ---
SHIFT SUMMARY; PATIENT WAS AWAKE MOST OF THE NIGHT, WALKING IN HALLS, NEPHROSTOMY DRESSING ONLY CHANGED ONCE BY PREVIOUS SHIFT. PATIENT VOIDS CLEAR YELLOW URINE BUT NEPHROSTOMY TUBE REMAINS BLOODY, GOOD OUTPUT THRU IT. MEDICATED OFTEN SHE CAN HAVE WITH PAIN MEDS. HAD BM YESTERDAY REFUSED STOOL SOFTENERS. REMAINS IN CONTACT PRECAUTION D/T C DIFF CARRIER
[2024-12-04 07:50] VITALS: BP 118/61
--- NOTE | 2024-12-04 08:28 | NUR ---
PATIENT KEEPS EMPTYING OWN NEPH BAG WITHOUT NOTIFYING STAFF. PATIENT EDUCATED ON TELLING STAFF SO WE CAN DOCUMENT OUTPUT.
[2024-12-04] MEDS ORDERED: FLOMAX0.4 MG PO (13:27)
--- NOTE | 2024-12-04 13:46 | NUR ---
DISCHARGE NOTE: PATIENT GATHERED HER BELONGINGS. MEDS RETURNED FROM DRAWER. IV REMOVED. WENT OVER DISCHARGE WITH THE PATIENT. SCRIPTS PROVIDED. PATIENT WALKED OUT WITH DAUGHTER. NO SIGNS OR SYMPTOMS OF DISTRESS WITH DISCHARGE.
== END 2024-12-04 14:10 | disposition home or self-care (01) | DRG 694 ==
LOC: ER 21:25 → MEDS 21:26 → ENPENDDIS 12-04 12:54 → MEDS 12-04 14:10
PROVIDERS: Family Medicine; Student in an Organized Health Care Education/Training Program; ADMIT Internal Medicine
PROC: 0T9030Z Drainage of Right Kidney with Drainage Device, Percutaneous Approach (ICD-10-PCS; principal; 2024-12-03)
DX: N13.30 Unspecified hydronephrosis (principal); K50.90 Crohn's disease, unspecified, without complications; J45.909 Unspecified asthma, uncomplicated; M79.7 Fibromyalgia; I10 Essential (primary) hypertension; N32.81 Overactive bladder; M06.9 Rheumatoid arthritis, unspecified; R19.7 Diarrhea, unspecified; G89.29 Other chronic pain; I25.10 Atherosclerotic heart disease of native coronary artery without angina pectoris; E11.42 Type 2 diabetes mellitus with diabetic polyneuropathy; N17.9 Acute kidney failure, unspecified; E86.0 Dehydration; N23 Unspecified renal colic; F17.200 Nicotine dependence, unspecified, uncomplicated; Z79.890 Hormone replacement therapy; Z88.8 Allergy status to other drugs, medicaments and biological substances; Z88.7 Allergy status to serum and vaccine; Z79.82 Long term (current) use of aspirin; I25.2 Old myocardial infarction; Z79.1 Long term (current) use of non-steroidal anti-inflammatories (NSAID); Z79.2 Long term (current) use of antibiotics; Z95.5 Presence of coronary angioplasty implant and graft; Z87.442 Personal history of urinary calculi
CPT/HCPCS: 36415; 74177; 76770; 76937; 78708; 80048; 80053; 80069; 81001; 81025; 82947; 83690; 83880; 85025; 87324; 87493; 93005; 93010; 94760; 96361; 96374-59; 96375; 96376; 99152; 99153; 99285-25; A9270; A9562; C1729; C1769; C1894; G0378; J1171; J2250; J2405; J3010; J7030; J7040; J7050; Q9967

== ENCOUNTER 2024-12-14 19:43 | Inpatient (IN) | payer OTHER ==
[~2024-12-14] VITALS: Ht 157.5 cm; Wt 75.6 kg
[~2024-12-14 19:43] MED LIST changes: +ASCORBIC ACID500 MG PO; +DILTIAZEM 24HR240 M6 PO; +ISOSORBIDE MONO60 MG PO; -SULF500 PO; +VITAMIN D31000 UNI1 PO
[2024-12-14] MEDS ORDERED: Ondansetron HCl 2 MG / ML 2ML Vial IV ONE (20:25)
[2024-12-14] MEDS ORDERED: Ondansetron 4 MG SoluTab SL ONE (20:25)
[2024-12-14] MEDS ORDERED: Morphine Sulfate 4 MG/1 ML Injection IV ONE (23:00)
[2024-12-14] MEDS ORDERED: CefTRIAXone Sodium 1,000 MG in NS 100 ML IV ONE (23:05)
[2024-12-14 23:27] LABS: BASOPHILS ABSOLUTE AUTO 0.04 K/mm3 (0.00-0.23); BASOPHILS PERCENT AUTO 0 % (0-2); EOSINOPHILS ABSOLUTE AUTO 0.21 K/mm3 (0.00-0.68); EOSINOPHILS PERCENT AUTO 2 % (0-6); Hematocrit 35.2 % (33.0-51.0); Hemoglobin 11.7 g/dL (11.5-16.0); IMMATURE GRAN ABSOLUTE AUTO 0.04 K/mm3 (0.00-0.10); IMMATURE GRAN PERCENT AUTO 0 % (0-1); LYMPHOCYTES ABSOLUTE AUTO 2.38 K/mm3 (0.84-5.20); LYMPHOCYTES PERCENT AUTO 20 % (21-46); MONOCYTES ABSOLUTE AUTO 1.08 K/mm3 (0.16-1.47); MONOCYTES PERCENT AUTO 9 % (4-13); Mean Corpuscular HGB Conc 33.2 g/dL (31.5-36.5); Mean Corpuscular Volume 98 fL (80-100); NEUTROPHILS ABSOLUTE AUTO 7.95 K/mm3 (1.96-9.15); NEUTROPHILS PERCENT AUTO 68 % (41-73); NRBC ABSOLUTE 0.00 K/mm3 (0.00-0.02); NRBC Auto 0.0 /100 WBC (0.0-0.2); Platelet Count 172 K/mm3 (150-400); RDW Coefficient Variation 13.0 % (11.7-14.2); RDW Standard Deviation 46.5 fL (35.1-46.3)
[2024-12-14] MEDS ORDERED: Ondansetron HCl 2 MG / ML 2ML Vial ONE (23:38)
[2024-12-14 23:45] LABS: Alanine Aminotransfer (ALT/SGP 18.0 U/L (12-78); Albumin, Blood 3.6 g/dL (3.4-5.0); Albumin/Globulin Ratio 0.9 (0.8-1.8); Anion Gap 9.0 mmol/L (3-11); Aspartate Aminotrans (AST/SGOT 18.0 U/L (12-37); Bilirubin, Total 0.7 mg/dL (0.1-1.0); Blood Urea Nitrogen 10.0 mg/dL (8-24); CO2, Blood 23.0 mmol/L (21-32); Calcium, Blood 9.0 mg/dL (8.5-10.1); Chloride, Blood 108.0 mmol/L (98-108); Creatinine, Blood 0.68 mg/dL (0.40-1.00); Globulin, Blood 4.1 g/dL (2.2-4.0); Glucose, Blood 120.0 mg/dL (70-99); Potassium, Blood 4.1 mmol/L (3.5-5.5); Sodium, Blood 136.0 mmol/L (136-145); Total Protein, Blood 7.7 g/dL (6.4-8.2)
[2024-12-15] MEDS ORDERED: Morphine Sulfate 4 MG/1 ML Injection IV ONE (00:55)
[2024-12-15 01:14] LABS: Source, Urine Voided
[2024-12-15 01:15] LABS: Glucose Qualitative, Urine Neg (Neg); Leukocyte Esterase, Urine 2+ (Neg); Protein, Urine 2+ (Neg); Specific Gravity, Urine 1.010 (1.003-1.022)
[2024-12-15 01:16] LABS: Bilirubin, Urine Neg (Neg); Color, Urine Yellow (P-Yellow); Ketones, Urine Neg (Neg); Urobilinogen, Urine NORM (Normal)
[2024-12-15 01:17] LABS: Source, Urine Nephrostomy
[2024-12-15 01:20] LABS: Bilirubin, Urine Neg (Neg); Color, Urine Yellow (P-Yellow); Glucose Qualitative, Urine Neg (Neg); Ketones, Urine Neg (Neg); Leukocyte Esterase, Urine 3+ (Neg); Protein, Urine 3+ (Neg); Specific Gravity, Urine 1.015 (1.003-1.022); Urobilinogen, Urine NORM (Normal)
[2024-12-15 01:43] LABS: Red Blood Cells, Urine 25-50 /hpf (0-2); White Blood Cells, Urine TNTC /hpf (0-5)
[2024-12-15] MEDS ORDERED: Ondansetron HCl 2 MG / ML 2ML Vial IV PRN (03:00)
[2024-12-15] MEDS ORDERED: Naloxone HCl 0.4MG / ML 1ML Vial IV PRN (03:00)
[2024-12-15] MEDS ORDERED: Morphine Sulfate 4 MG/1 ML Injection IV PRN (03:00)
[2024-12-15] MEDS ORDERED: Polyethylene Glycol 3350 17 gm PO PRN (03:05)
[2024-12-15] MEDS ORDERED: Docusate Sodium/Senna 1 Tab PO PRN (03:10)
[2024-12-15] MEDS ORDERED: MOBIC15 MG PO (03:28)
[2024-12-15] MEDS ORDERED: Methocarbamol750 MG PO (03:28)
[2024-12-15] MEDS ORDERED: Phenergan25 M1 PO (03:30)
[2024-12-15] MEDS ORDERED: HUMIRA(CF)40 MG/0.4 SC (03:31)
[2024-12-15 05:00] VITALS: BP 127/61
[2024-12-15 05:03] LABS: BASOPHILS ABSOLUTE AUTO 0.04 K/mm3 (0.00-0.23); BASOPHILS PERCENT AUTO 0 % (0-2); EOSINOPHILS ABSOLUTE AUTO 0.21 K/mm3 (0.00-0.68); EOSINOPHILS PERCENT AUTO 2 % (0-6); Hematocrit 34.0 % (33.0-51.0); Hemoglobin 11.1 g/dL (11.5-16.0); IMMATURE GRAN ABSOLUTE AUTO 0.05 K/mm3 (0.00-0.10); IMMATURE GRAN PERCENT AUTO 1 % (0-1); LYMPHOCYTES ABSOLUTE AUTO 3.66 K/mm3 (0.84-5.20); LYMPHOCYTES PERCENT AUTO 33 % (21-46); MONOCYTES ABSOLUTE AUTO 1.04 K/mm3 (0.16-1.47); MONOCYTES PERCENT AUTO 9 % (4-13); Mean Corpuscular HGB Conc 32.6 g/dL (31.5-36.5); Mean Corpuscular Volume 100 fL (80-100); NEUTROPHILS ABSOLUTE AUTO 6.09 K/mm3 (1.96-9.15); NEUTROPHILS PERCENT AUTO 55 % (41-73); NRBC ABSOLUTE 0.00 K/mm3 (0.00-0.02); NRBC Auto 0.0 /100 WBC (0.0-0.2); Platelet Count 155 K/mm3 (150-400); RDW Coefficient Variation 13.0 % (11.7-14.2); RDW Standard Deviation 47.2 fL (35.1-46.3)
[2024-12-15 05:32] LABS: Alanine Aminotransfer (ALT/SGP 18.0 U/L (12-78); Albumin, Blood 3.4 g/dL (3.4-5.0); Albumin/Globulin Ratio 0.8 (0.8-1.8); Anion Gap 9.0 mmol/L (3-11); Aspartate Aminotrans (AST/SGOT 16.0 U/L (12-37); Bilirubin, Total 0.5 mg/dL (0.1-1.0); Blood Urea Nitrogen 10.0 mg/dL (8-24); CO2, Blood 24.0 mmol/L (21-32); Calcium, Blood 8.7 mg/dL (8.5-10.1); Chloride, Blood 106.0 mmol/L (98-108); Creatinine, Blood 0.69 mg/dL (0.40-1.00); Globulin, Blood 4.1 g/dL (2.2-4.0); Glucose, Blood 125.0 mg/dL (70-99); Potassium, Blood 4.0 mmol/L (3.5-5.5); Sodium, Blood 135.0 mmol/L (136-145); Total Protein, Blood 7.5 g/dL (6.4-8.2)
--- NOTE | 2024-12-15 06:19 | NUR ---
SHIFT SUMMARY PT HAS TOLERATED SHIFT SINCE ADMIT WELL. PT CURRENTLY RESTING COMFORTABLY IN ROOM. PT CALM AND COOPERATIVE, CALL LIGHT WITHIN REACH. WILL CONTINUE TO MONITOR UNTIL REPORT PASSED TO DAY SHIFT TEAM.
[2024-12-15 08:10] VITALS: BP 113/80
[2024-12-15] MEDS ORDERED: Lactobacil 2-S.Thermo-Bifido 1 1 Cap PO SCH (09:00)
[2024-12-15] MEDS ORDERED: Isosorbide Mononitrate 60 MG TABCR PO SCH (09:00)
[2024-12-15 11:17] VITALS: BP 94/58
[2024-12-15 13:16] VITALS: BP 96/58
[2024-12-15 15:57] VITALS: BP 92/65
--- NOTE | 2024-12-15 16:36 | NUR ---
Transfer to Medical Pt medical no telemetry status. A&O x4. VSS. Pt reports "normal for my blood pressure to be low." Spo2 > 92% on RA. Pt c/o pain to R nephrostomy tube site. Pt reporting inability to lay on R side d/t discomfort at site. Pt requesting nephrostomy tube to be removed. Pt reporting "no output" from nephrostomy tube & reports voiding adequately. Pt being medicated for pain w/ medication per emar. Pt reporting pain 7/10 w/ "7 is good for me. 7 [address] I [address]." Pt steady on feet, independent in rm. Report given to accepting medical floor RN. Pt to be taken to rm 345 w/ belongings.
--- NOTE | 2024-12-15 18:32 | NUR ---
PT TRASNFERRED FROM PCU TO MEDICAL FLOOR AT APPROX 1645. PT ARRIVES AND REPORTS PAIN APPROX 7/10 - PAIN MEDICATION ADMINISTERED ONCE AVAILABLE. NEPHROSTOMY DRESSING CHANGED WITH PERMISSION FROM - SCANT PURULENT DRAINAGE NOTED. THIS RN SPOKE WITH DR. NARANJO WHO STATES DUE TO PT WBC IMPROVING AND NO FEVERS PT WILL CONTINUE ON ROCEPHIN AND NO DRAINAGE OR IR INTERVENTIONS NECESSARY. RN UPDATED ZEYAD AND ALSO INFORMED THAT PT OXYBUTYNIN IS NOT ORDERED AND PT STATES IT HELPS WITH HER PAIN SIGNIFICANTLY. PROVIDER ORDERED - DAUGHTER TO BRING MEDICATION FROM HOME THIS EVENING FOR STATISTICS TUTOR TO BE ABLE TO ADMINISTER PER EMAR ONCE VERIFIED BY PHARMACY. PT ORIENTED TO ROOM AND CALL SYSTEM. FULL CODE. INDEPENDENT.
[2024-12-15] MEDS ORDERED: OXYBUTYNIN 15 MG PO SCH (20:00)
[2024-12-15] MEDS ORDERED: NS 250 ML IV PRN (20:30)
[2024-12-15 20:49] VITALS: BP 99/61
[2024-12-15] MEDS ORDERED: CefTRIAXone Sodium 1,000 MG in NS 100 ML IV SCH (21:00)
[2024-12-16 03:53] VITALS: BP 113/66
[2024-12-16 06:03] LABS: BASOPHILS ABSOLUTE AUTO 0.02 K/mm3 (0.00-0.23); BASOPHILS PERCENT AUTO 0 % (0-2); EOSINOPHILS ABSOLUTE AUTO 0.24 K/mm3 (0.00-0.68); EOSINOPHILS PERCENT AUTO 3 % (0-6); Hematocrit 30.1 % (33.0-51.0); Hemoglobin 9.7 g/dL (11.5-16.0); IMMATURE GRAN ABSOLUTE AUTO 0.02 K/mm3 (0.00-0.10); IMMATURE GRAN PERCENT AUTO 0 % (0-1); LYMPHOCYTES ABSOLUTE AUTO 2.86 K/mm3 (0.84-5.20); LYMPHOCYTES PERCENT AUTO 41 % (21-46); MONOCYTES ABSOLUTE AUTO 0.75 K/mm3 (0.16-1.47); MONOCYTES PERCENT AUTO 11 % (4-13); Mean Corpuscular HGB Conc 32.2 g/dL (31.5-36.5); Mean Corpuscular Volume 101 fL (80-100); NEUTROPHILS ABSOLUTE AUTO 3.16 K/mm3 (1.96-9.15); NEUTROPHILS PERCENT AUTO 45 % (41-73); NRBC ABSOLUTE 0.00 K/mm3 (0.00-0.02); NRBC Auto 0.0 /100 WBC (0.0-0.2); Platelet Count 117 K/mm3 (150-400); RDW Coefficient Variation 12.7 % (11.7-14.2); RDW Standard Deviation 46.6 fL (35.1-46.3)
--- NOTE | 2024-12-16 06:18 | NUR ---
Shift Summary Pt having severe R flank pain t/o the shift, medicated per EMAR. Low output from R nephrostomy tonight, 60 mL this shift. Urine from the nephrostomy is orange. Pt is AOx4, independent in the room.
[2024-12-16 06:22] LABS: Alanine Aminotransfer (ALT/SGP 16.0 U/L (12-78); Albumin, Blood 2.9 g/dL (3.4-5.0); Albumin/Globulin Ratio 0.8 (0.8-1.8); Anion Gap 6.0 mmol/L (3-11); Aspartate Aminotrans (AST/SGOT 13.0 U/L (12-37); Bilirubin, Total 0.1 mg/dL (0.1-1.0); Blood Urea Nitrogen 12.0 mg/dL (8-24); CO2, Blood 26.0 mmol/L (21-32); Calcium, Blood 8.5 mg/dL (8.5-10.1); Chloride, Blood 108.0 mmol/L (98-108); Creatinine, Blood 0.78 mg/dL (0.40-1.00); Globulin, Blood 3.8 g/dL (2.2-4.0); Glucose, Blood 112.0 mg/dL (70-99); Potassium, Blood 4.1 mmol/L (3.5-5.5); Sodium, Blood 136.0 mmol/L (136-145); Total Protein, Blood 6.7 g/dL (6.4-8.2)
[2024-12-16 08:03] VITALS: BP 98/60
[2024-12-16] MEDS ORDERED: OxyCODONE 10/Acetamin 325 TABLET PO PRN (12:05)
[2024-12-16] MEDS ORDERED: Vancomycin (Pharmacy Consult) IV SCH (14:30)
[2024-12-16 15:38] VITALS: BP 104/69
--- NOTE | 2024-12-16 18:20 | NUR ---
PT FOUND TO BE MRSA POSITIVE IN STENT AND BLADDER. DR. JEFFERS TO FOLLOW UP WITH IR TOMORROW. PT TEARFUL TODAY. INDEPENDENT IN THE ROOM, CALLS APPROPRIATELY, TREATED PAIN PER EMAR.
[2024-12-16 20:02] VITALS: BP 111/82
[2024-12-16 20:52] VITALS: BP 112/73
[2024-12-17 03:55] VITALS: BP 123/80
[2024-12-17 06:36] LABS: BASOPHILS ABSOLUTE AUTO 0.02 K/mm3 (0.00-0.23); BASOPHILS PERCENT AUTO 0 % (0-2); EOSINOPHILS ABSOLUTE AUTO 0.30 K/mm3 (0.00-0.68); EOSINOPHILS PERCENT AUTO 4 % (0-6); Hematocrit 32.8 % (33.0-51.0); Hemoglobin 10.6 g/dL (11.5-16.0); IMMATURE GRAN ABSOLUTE AUTO 0.02 K/mm3 (0.00-0.10); IMMATURE GRAN PERCENT AUTO 0 % (0-1); LYMPHOCYTES ABSOLUTE AUTO 2.62 K/mm3 (0.84-5.20); LYMPHOCYTES PERCENT AUTO 35 % (21-46); MONOCYTES ABSOLUTE AUTO 0.60 K/mm3 (0.16-1.47); MONOCYTES PERCENT AUTO 8 % (4-13); Mean Corpuscular HGB Conc 32.3 g/dL (31.5-36.5); Mean Corpuscular Volume 101 fL (80-100); NEUTROPHILS ABSOLUTE AUTO 3.88 K/mm3 (1.96-9.15); NEUTROPHILS PERCENT AUTO 52 % (41-73); NRBC ABSOLUTE 0.00 K/mm3 (0.00-0.02); NRBC Auto 0.0 /100 WBC (0.0-0.2); Platelet Count 141 K/mm3 (150-400); RDW Coefficient Variation 12.5 % (11.7-14.2); RDW Standard Deviation 47.1 fL (35.1-46.3)
--- NOTE | 2024-12-17 06:49 | NUR ---
Shift Summary AO x 4. Ad garett. Medicating for pain round the clock with 4mg IV morphine q2 hours and percocet 5/325 q4 hours religiously. Patient rating pain at 8/10 with little or no improvement... maybe a 7 rating once out of all the pain meds given. Up in room by self, emptying nephrostomy tube and voiding independently, highly anxious, very talkative and polite. Able to make needs known. Receiving IV vanco for MRSA infection, awaiting IR consultation for nephrostomy tube.
[2024-12-17 06:51] LABS: Anion Gap 7.0 mmol/L (3-11); Blood Urea Nitrogen 10.0 mg/dL (8-24); CO2, Blood 26.0 mmol/L (21-32); Calcium, Blood 8.3 mg/dL (8.5-10.1); Chloride, Blood 108.0 mmol/L (98-108); Creatinine, Blood 0.66 mg/dL (0.40-1.00); Glucose, Blood 96.0 mg/dL (70-99); Potassium, Blood 4.1 mmol/L (3.5-5.5); Sodium, Blood 137.0 mmol/L (136-145)
[2024-12-17 07:37] VITALS: BP 115/63
[2024-12-17] MEDS ORDERED: HYDROmorphone HCl/Pf 1MG SYR IV PRN ×2 (08:50→12:00)
[2024-12-17] MEDS ORDERED: HYDROmorphone HCl/Pf 1MG SYR IV ONE (12:00)
--- NOTE | 2024-12-17 15:43 | NUR ---
nephrostomy bag removed and tube clamped per dr. adames verbal order. pt tolorated well. plan for renal ultasound tomorrow
[2024-12-17 16:19] VITALS: BP 109/74
--- NOTE | 2024-12-17 18:29 | NUR ---
SHIFT SUMMARY: PATIENT PLEASANT AND COOPERATIVE WITH NURSING CARE THIS SHIFT. POWER GLIDE PLACED ON ABBI FOR CONTINUED ANTIBIOTIC TREATMENT. DR. EAGLE HAD DISCUSSION WITH THIS PATIENT IN REGARDS TO NEPHROSTOMY TUBE. PLAN TO KEEP NEPHROSTOMY FOR NOW AND MONITOR FOR WORSENING SYMPTOMS. DRESSING AROUND NEPHROSTOMY CHANGED THIS SHIFT. PLAN OF CARE ONGOING AT THIS TIME. WILL CONTINUE TO MONITOR.
[2024-12-17] MEDS ORDERED: OXYC10TA19 PO (19:03)
[2024-12-17] MEDS ORDERED: FLOMAX0.4 MG PO (19:05)
[2024-12-17] MEDS ORDERED: NALOXONE HCL4 MG (19:05)
[2024-12-17] MEDS ORDERED: ESTRADIOL42.5 GM VAG (19:07)
[2024-12-17 19:10] VITALS: BP 110/70
[2024-12-17] MEDS ORDERED: Oxybutynin Chlo15 MG PO (19:13)
[2024-12-17] MEDS ORDERED: SULF500 PO (19:15)
[2024-12-17] MEDS ORDERED: NITROGLYCERIN0.4 M3 SL (19:16)
--- NOTE | 2024-12-17 23:00 | NUR ---
Methocarbamol and Meloxicam orders Patient called c/o mild spastic pain in lower extremities and inquired about both of her medications above. Once patient found out they were not on her EMAR, she became angry and started to blame staff for not listening to her saying statements like, "I haven't taken those for 3 days?! No wonder I'm in so much pain. Why would they stop these medications? These are non-negotiable meds because I will start to hurt" "Why would Dr. Brock not order me my meds?" as she was sobbing, crying, yelling, moaning, and being loudly vocal about how excruciating her pain has become. Patient demanded a call be made to Dr. Brock now to have him order those meds stat. Called and spoke with the machine operator transplanter Aleksandra Beltran NP and got orders to resume both home meds (dose/frequency/form). In addition, Aleksandra gave an order to give one dose of meloxicam now. Orders entered.
--- NOTE | 2024-12-18 00:20 | NUR ---
Ordered 1mg Dilaudid IV Now Patient had just received both her meloxicam and robaxin approx 30-45 minutes ago but demanded to get both her 10/325 Percocet and 2mg IV Dilaudid in addition to what's already been given. It was too soon to give both and this was relayed to patient but patient was not accepting. Patient becoming more hysterical and dramatic. Daughter was at the bedside through all of this and also chimed in with patient, both cursing "I don't understand why he would fucken do this to me. Why the fuck would he not continue my meds. Fuck!" and daughter speaking loudly so staff can hear saying, "Yeah, that's fucked up mom. They should'nt have done that." then directed this at RN "My mom is in pain! Can't you see that! You need to get her something because this isn't working. Etc..". Called Dr. Craig and received an order to give 1mg IV Dilaudid now. When this RN entered room, patient became even more hysterical crying even louder sitting at the edge of the bed saying she hurts all over now because the spasms have gotten into her affecting her kidneys and back even more. Patient curled toes and yelled at her daughter saying "Help me! Help me stand [daughter's name]! My cramps are causing my toes to bend and it hurts bad" while sobbing and crying. Daughter consoling patient sitting right next to patient. Patient appeared to retch a couple of times into an emesis bag while crying but did not vomit. Patient never metioned nausea to this RN. Moreno and 1mg Dilaudid given intravenously. Patient immediately calmed down and sobbed softer. With every movement, patient would curse and say "ouch" pointing to and talking about her RUQ and flank areas. Now able to walk again despite the lingering pain. Patient wanted the 2mg Dilaudid again when it is due despite having just received the 1mg dilaudid. Patient already voicing fear that the pain will be uncontrolled if she doesn't get her 2mg IV dilaudid at the 4 hour marko from the previous 2mg dilaudid. This RN left the room with patient saying "I don't give a shit. I am going to go out and smoke a cigarette today! This piece of shit isn't doing anything for my pain (with regard to nicotine patch). I swear, I am gonna have a cigarette in a little bit just to piss them off" as she pulls off her nicotine patch. "At least a cigarette will help calm me down."
[2024-12-18] MEDS ORDERED: HYDROmorphone HCl/Pf 1MG SYR IV ONE (00:30)
--- NOTE | 2024-12-18 02:15 | NUR ---
Order to give 2mg IV Dilaudid early Patient can be heard whining and whimpering angrily saying that she needs her dilaudid now or else she can't relax because she's in so much excruciating pain. Verbalizes that she can't sleep because her pain medications are going to be due. Patient now pacing her room, crying, yelling, whimpering, cursing, demanding. Call made out yet again to Dr. Craig RE above demand and demeanor. Received an order to give early one time 2mg IV dilaudid for her pain. This time, patient did not want this RN to mix Dilaudid with NS prior to administering. Med given and abx also started. Patient immediately went into bed and before this RN was completely finished with starting the antibiotics, patient was sound asleep. This was around 0230.
[2024-12-18 05:10] VITALS: BP 115/84
[2024-12-18 05:45] LABS: BASOPHILS ABSOLUTE AUTO 0.02 K/mm3 (0.00-0.23); BASOPHILS PERCENT AUTO 0 % (0-2); EOSINOPHILS ABSOLUTE AUTO 0.37 K/mm3 (0.00-0.68); EOSINOPHILS PERCENT AUTO 5 % (0-6); Hematocrit 31.6 % (33.0-51.0); Hemoglobin 10.1 g/dL (11.5-16.0); IMMATURE GRAN ABSOLUTE AUTO 0.02 K/mm3 (0.00-0.10); IMMATURE GRAN PERCENT AUTO 0 % (0-1); LYMPHOCYTES ABSOLUTE AUTO 3.02 K/mm3 (0.84-5.20); LYMPHOCYTES PERCENT AUTO 40 % (21-46); MONOCYTES ABSOLUTE AUTO 0.74 K/mm3 (0.16-1.47); MONOCYTES PERCENT AUTO 10 % (4-13); Mean Corpuscular HGB Conc 32.0 g/dL (31.5-36.5); Mean Corpuscular Volume 100 fL (80-100); NEUTROPHILS ABSOLUTE AUTO 3.30 K/mm3 (1.96-9.15); NEUTROPHILS PERCENT AUTO 44 % (41-73); NRBC ABSOLUTE 0.00 K/mm3 (0.00-0.02); NRBC Auto 0.0 /100 WBC (0.0-0.2); Platelet Count 135 K/mm3 (150-400); RDW Coefficient Variation 12.2 % (11.7-14.2); RDW Standard Deviation 45.1 fL (35.1-46.3)
[2024-12-18 06:10] LABS: Alanine Aminotransfer (ALT/SGP 21.0 U/L (12-78); Albumin, Blood 3.2 g/dL (3.4-5.0); Albumin/Globulin Ratio 0.8 (0.8-1.8); Anion Gap 5.0 mmol/L (3-11); Aspartate Aminotrans (AST/SGOT 21.0 U/L (12-37); Bilirubin, Total 0.3 mg/dL (0.1-1.0); Blood Urea Nitrogen 9.0 mg/dL (8-24); CO2, Blood 27.0 mmol/L (21-32); Calcium, Blood 8.6 mg/dL (8.5-10.1); Chloride, Blood 109.0 mmol/L (98-108); Creatinine, Blood 0.69 mg/dL (0.40-1.00); Globulin, Blood 3.8 g/dL (2.2-4.0); Glucose, Blood 87.0 mg/dL (70-99); Potassium, Blood 4.0 mmol/L (3.5-5.5); Sodium, Blood 137.0 mmol/L (136-145); Total Protein, Blood 7.0 g/dL (6.4-8.2)
--- NOTE | 2024-12-18 07:00 | NUR ---
How the shift ended... Patient woke back up around 5am because FACILITIES MAINTENANCE ASSISTANT needed to do vitals. Patient appears more calm and asking for her percocet. Rated pain at 9/10 but appears to be sitting and conversating with this RN without any overt signs of pain except verbalizing her dissatisfaction with Dr. Brock for not listening and ordering all of her home meds sooner and that's why she had to go through what she went through. Patient called exactly at 0620 for her dilaudid, again, with the same pain rating of 8-9/10. Despite frequently medicating with this much pain meds, following up with patient's pain, the number on the pain scale never changed. It is always an 8-9/10 for every assessment and reassessment thereafter. Relinquished care and responsibility of patient to CHARBEL Dalal.
[2024-12-18 07:09] VITALS: BP 104/56
[2024-12-18 09:13] VITALS: BP 135/83
[2024-12-18] MEDS ORDERED: HYDROmorphone HCl/Pf 1MG SYR IV PRN (10:25)
[2024-12-18 14:48] LABS: Vancomycin, Trough 17.1 ug/mL (5.0-10.0)
[2024-12-18 15:19] VITALS: BP 90/53
--- NOTE | 2024-12-18 15:34 | NUR ---
PT VITAL SIGNS- BP 90/53 (65), HR 53, RR 12, 95% R/A. RECENTLY MEDICATED FOR PAIN PER EMAR. PT DROWSY BUT WAKES EASILY TO VERBAL STIMULI, PT REPORTS FEELING RELAXED. NON SYMPTOMATIC, NO ALERTERED MENATION AT THIS TIME. CONT PULSE OXIMETER IN PLACE ORDERED. DR. JEFFERS NOTIFIED.
--- NOTE | 2024-12-18 19:49 | NUR ---
R NEPH TUBE REMOVED BY DR. EAGLE AT BEDSIDE. PT REPORTS SEVERE PAIN TO RIGHT FLANK. TREATED PER EMAR WITH GREAT EFFECT. IV ANTIBIOTICS AND PAIN MANAGEMENT CONTINUED. INDEPENDENT IN THE ROOM, CALLS APPROPRIATE.
[2024-12-18 20:37] VITALS: BP 122/69
[2024-12-19 05:01] VITALS: BP 130/68
[2024-12-19 05:15] LABS: BASOPHILS ABSOLUTE AUTO 0.02 K/mm3 (0.00-0.23); BASOPHILS PERCENT AUTO 0 % (0-2); EOSINOPHILS ABSOLUTE AUTO 0.34 K/mm3 (0.00-0.68); EOSINOPHILS PERCENT AUTO 6 % (0-6); Hematocrit 29.0 % (33.0-51.0); Hemoglobin 9.3 g/dL (11.5-16.0); IMMATURE GRAN ABSOLUTE AUTO 0.02 K/mm3 (0.00-0.10); IMMATURE GRAN PERCENT AUTO 0 % (0-1); LYMPHOCYTES ABSOLUTE AUTO 1.75 K/mm3 (0.84-5.20); LYMPHOCYTES PERCENT AUTO 29 % (21-46); MONOCYTES ABSOLUTE AUTO 0.49 K/mm3 (0.16-1.47); MONOCYTES PERCENT AUTO 8 % (4-13); Mean Corpuscular HGB Conc 32.1 g/dL (31.5-36.5); Mean Corpuscular Volume 101 fL (80-100); NEUTROPHILS ABSOLUTE AUTO 3.36 K/mm3 (1.96-9.15); NEUTROPHILS PERCENT AUTO 56 % (41-73); NRBC ABSOLUTE 0.00 K/mm3 (0.00-0.02); NRBC Auto 0.0 /100 WBC (0.0-0.2); Platelet Count 118 K/mm3 (150-400); RDW Coefficient Variation 12.3 % (11.7-14.2); RDW Standard Deviation 45.8 fL (35.1-46.3)
[2024-12-19 05:37] LABS: Anion Gap 6.0 mmol/L (3-11); Blood Urea Nitrogen 9.0 mg/dL (8-24); CO2, Blood 26.0 mmol/L (21-32); Calcium, Blood 8.2 mg/dL (8.5-10.1); Chloride, Blood 112.0 mmol/L (98-108); Creatinine, Blood 0.67 mg/dL (0.40-1.00); Glucose, Blood 102.0 mg/dL (70-99); Potassium, Blood 4.0 mmol/L (3.5-5.5); Sodium, Blood 140.0 mmol/L (136-145)
--- NOTE | 2024-12-19 06:15 | NUR ---
SHIFT SUMMARY: Pt is admitted for right flank pain and is a full code. Is alert and able to make needs known. ADLs have been IND. on ISO for MRSA. pain has been managed with PRN medications. Powerglide to left upper is patent with dressing that is CDI. IV to left forearm is patent with dressing that is CDI. she voiced concern about anxiety starting to bother her during the shift. She was able to voice the concerns to this LN and stated she felt better. Was noted to be able to rest through most of the shift.
[2024-12-19 07:27] VITALS: BP 145/79
[2024-12-19] MEDS ORDERED: HYDROmorphone HCl/Pf 1MG SYR IV PRN ×3 (13:30→17:30)
[2024-12-19] MEDS ORDERED: OxyCODONE 7.5 mg/Acetam 325 mg TABLET PO PRN (14:25)
[2024-12-19 15:38] VITALS: BP 94/58
--- NOTE | 2024-12-19 18:08 | NUR ---
SHIFT SUMMARY PT AOX4, COOPERATIVE, ABLE TO MAKE NEEDS KNOWN. PT IND IN ROOM, ON ROOM AIR. TOLERATING MEDICATION. SUPPOSED TO DC TOMORROW. PT HAS MANY COMPLAINTS ABOUT CARE BEING PERFORMED IN AND OUT OF HOSPITAL. NO ACUTE EVENTS TOOK PLACE THIS SHIFT. BED IN LOWEST POSITION, CALL LIGHT WITHIN REACH.
[2024-12-19 20:03] VITALS: BP 116/83
[2024-12-20 04:18] VITALS: BP 125/105
--- NOTE | 2024-12-20 06:34 | NUR ---
SHIFT SUMMARY: Pt is admitted for right flank pain and is a full code. Is alert and able to make needs known. ADLs have been IND. on ISO for MRSA. pain has been managed with PRN medications. Powerglide to left upper is patent with dressing that is CDI. IV to right forearm is patent with dressing that is CDI. interaction about 0112. This LN was informed by the FIELD TECHNICAL ASSISTANT the PT wanted PRN dilidid and percocet at the same time for pain management. This LN informed PT that was not able to give both at the same time. There has to be some time in between them. PT requested to have the percocet in about 20min. She was informed that its about 45 min in between times is what this LN has been informed to follow. She stated that well if i fall asleep then your not going to bring me the percocet and i need it. PT was informed that this LN understands what being said. But these are the guidelines that have been passed on for adherence. LN attempted to reassure PT that they would come in and check on PT and see if any further actions were needed about 45 min after admin of first medication. Diliudid admin per emar as requested by PT. followed up at about 45min. PT was awake and stated that she was still in pain with no change in stated number. Percocet was given per emar.
[2024-12-20] MEDS ORDERED: SULTRIDS PO (11:40)
[2024-12-20] MEDS ORDERED: VISBIOME 112.51 EACH PO (11:40)
--- NOTE | 2024-12-20 12:04 | NUR ---
DISCHARGE 1150 PT AOX4, COOPERATIVE, ABLE TO MAKE NEEDS KNOWN. PT IS IND IN ROOM, ON ROOM AIR, CONNECTED TO PULSE OX DUE TO OPIOID MEDICATION USE. IN ISO FOR MRSA OF WOUND. FAMILY HAS BEEN BEDSIDE ALL MORNING. PT EMOTIONALLY LABILE. THIS RN WENT OVER DC PAPERWORK WITH PT, AND DC'D PT IV WITHOUT ISSUE. NEW MEDS SENT TO [facility]. THIS RN DID DOSE PT WITH PAIN MEDS PRIOR TO DC. PT OPTED TO AMBULATE OUT OF HOSPITAL OF OWN ACCORD. BELONGINGS WENT WITH PT ALONG WITH HARD SCRIPT.
== END 2024-12-20 11:51 | disposition home or self-care (01) | DRG 920 ==
LOC: ER 19:43 → PCU 19:44 → ERHOLD 19:44 → PCU 12-15 04:45 → MEDS 12-15 15:21 → PCU 12-15 15:21 → MEDS 12-15 16:49
PROVIDERS: Emergency Medicine; Family Medicine; ADMIT Student in an Organized Health Care Education/Training Program
DX: N99.840 Postprocedural hematoma of a genitourinary system organ or structure following a genitourinary system procedure (principal); K50.90 Crohn's disease, unspecified, without complications; T83.512A Infection and inflammatory reaction due to nephrostomy catheter, initial encounter; N13.6 Pyonephrosis; N17.9 Acute kidney failure, unspecified; Y83.8 Other surgical procedures as the cause of abnormal reaction of the patient, or of later complication, without mention of misadventure at the time of the procedure; F11.90 Opioid use, unspecified, uncomplicated; J45.909 Unspecified asthma, uncomplicated; Z87.442 Personal history of urinary calculi; M79.7 Fibromyalgia; B95.62 Methicillin resistant Staphylococcus aureus infection as the cause of diseases classified elsewhere; N32.81 Overactive bladder; N20.0 Calculus of kidney; M06.9 Rheumatoid arthritis, unspecified; G62.9 Polyneuropathy, unspecified; Z90.49 Acquired absence of other specified parts of digestive tract; Z98.51 Tubal ligation status; Z95.5 Presence of coronary angioplasty implant and graft; Z90.710 Acquired absence of both cervix and uterus; Z79.899 Other long term (current) drug therapy; Z88.7 Allergy status to serum and vaccine; Z79.82 Long term (current) use of aspirin; I25.2 Old myocardial infarction
CPT/HCPCS: 36415; 74177; 76705; 80048; 80053; 80202; 81001; 82947; 83605; 83735; 85025; 87040; 87077; 87086; 87147; 87186; 93005; 93010; 94762; 96365; 96375; 96376; 99285-25; A9270; C1751; G0378; J0696; J1171; J2270; J2405; J3373; J7040; J7050; Q9967

== ENCOUNTER 2025-02-28 21:36 | Emergency (ER) | payer OTHER ==
[~2025-02-28] VITALS: Ht 167.6 cm; Wt 70.3 kg
[~2025-02-28 21:36] MED LIST changes: +ESTRADIOL42.5 GM VAG; +FLOMAX0.4 MG PO; +HUMIRA(CF)40 MG/0.4 SC; +MOBIC15 MG PO; +Methocarbamol750 MG PO; +NALOXONE HCL4 MG; +NITROGLYCERIN0.4 M3 SL; +OXYC10TA19 PO; +Oxybutynin Chlo15 MG PO; +Phenergan25 M1 PO; +SULF500 PO; +VISBIOME 112.51 EACH PO
[2025-02-28] MEDS ORDERED: NS 1,000 ML IV SCH (22:10)
[2025-02-28] MEDS ORDERED: HYDROmorphone HCl/Pf 1MG SYR IV ONE ×2 (22:10→23:15)
[2025-02-28 22:50] LABS: Source, Urine Clean Catch
[2025-02-28 22:54] LABS: Bilirubin, Urine Neg (Neg); Glucose Qualitative, Urine Neg (Neg); Ketones, Urine Neg (Neg); Leukocyte Esterase, Urine 3+ (Neg); Protein, Urine 2+ (Neg); Specific Gravity, Urine 1.010 (1.003-1.022); Urobilinogen, Urine NORM (Normal)
[2025-02-28 22:57] LABS: Alanine Aminotransfer (ALT/SGP 18.0 U/L (12-78); Albumin, Blood 3.3 g/dL (3.4-5.0); Albumin/Globulin Ratio 0.9 (0.8-1.8); Anion Gap 10.0 mmol/L (3-11); Aspartate Aminotrans (AST/SGOT 21.0 U/L (12-37); Bilirubin, Total 0.4 mg/dL (0.1-1.0); Blood Urea Nitrogen 11.0 mg/dL (8-24); CO2, Blood 21.0 mmol/L (21-32); Calcium, Blood 9.1 mg/dL (8.5-10.1); Chloride, Blood 110.0 mmol/L (98-108); Creatinine, Blood 0.98 mg/dL (0.40-1.00); Globulin, Blood 3.8 g/dL (2.2-4.0); Glucose, Blood 128.0 mg/dL (70-99); Potassium, Blood 4.0 mmol/L (3.5-5.5); Sodium, Blood 137.0 mmol/L (136-145); Total Protein, Blood 7.1 g/dL (6.4-8.2)
[2025-02-28 23:02] LABS: BASOPHILS ABSOLUTE AUTO 0.05 K/mm3 (0.00-0.23); BASOPHILS PERCENT AUTO 0 % (0-2); EOSINOPHILS ABSOLUTE AUTO 0.39 K/mm3 (0.00-0.68); EOSINOPHILS PERCENT AUTO 3 % (0-6); Hematocrit 35.2 % (33.0-51.0); Hemoglobin 11.0 g/dL (11.5-16.0); IMMATURE GRAN ABSOLUTE AUTO 0.06 K/mm3 (0.00-0.10); IMMATURE GRAN PERCENT AUTO 1 % (0-1); LYMPHOCYTES ABSOLUTE AUTO 3.81 K/mm3 (0.84-5.20); LYMPHOCYTES PERCENT AUTO 33 % (21-46); MONOCYTES ABSOLUTE AUTO 0.86 K/mm3 (0.16-1.47); MONOCYTES PERCENT AUTO 7 % (4-13); Mean Corpuscular HGB Conc 31.3 g/dL (31.5-36.5); Mean Corpuscular Volume 100 fL (80-100); NEUTROPHILS ABSOLUTE AUTO 6.40 K/mm3 (1.96-9.15); NEUTROPHILS PERCENT AUTO 55 % (41-73); NRBC ABSOLUTE 0.00 K/mm3 (0.00-0.02); NRBC Auto 0.0 /100 WBC (0.0-0.2); Platelet Count 169 K/mm3 (150-400); RDW Coefficient Variation 14.2 % (11.7-14.2); RDW Standard Deviation 52.0 fL (35.1-46.3)
[2025-02-28 23:03] LABS: Color, Urine Yellow (P-Yellow)
[2025-02-28 23:04] LABS: Red Blood Cells, Urine 0-2 /hpf (0-2); White Blood Cells, Urine TNTC /hpf (0-5)
[2025-03-01] MEDS ORDERED: HYDROmorphone HCl/Pf 1MG SYR IV ONE ×2 (01:00→01:45)
[2025-03-01] MEDS ORDERED: CEFP200 PO (01:24)
[2025-03-01 02:00] VITALS: BP 151/83
== END 2025-03-01 02:01 | disposition home or self-care (01) ==
LOC: ER 21:36
PROVIDERS: Emergency Medicine
DX: S66.911A Strain of unspecified muscle, fascia and tendon at wrist and hand level, right hand, initial encounter (principal); N13.2 Hydronephrosis with renal and ureteral calculous obstruction; Z88.7 Allergy status to serum and vaccine; Z88.8 Allergy status to other drugs, medicaments and biological substances; Z79.899 Other long term (current) drug therapy; Z79.82 Long term (current) use of aspirin; E11.9 Type 2 diabetes mellitus without complications; Z87.442 Personal history of urinary calculi; F17.200 Nicotine dependence, unspecified, uncomplicated; W22.8XXA Striking against or struck by other objects, initial encounter
CPT/HCPCS: 73110; 74177; 80053; 81001; 83605; 85025; 87077; 87086; 87186; 96361; 96374-59; 96376; 99284-25; J1171; J7030; Q9967